=== PATIENT | female | born 1935 | race Caucasian/White ===

== ENCOUNTER 2024-10-11 21:41 | Inpatient (IN) | payer MEDICARE, SELFPAY ==
[2024-10-11 21:42] VITALS: BP 170/96; PULSE 90; RESP 33; TEMP 36.6; O2SAT 92; BMI 25.7
--- NOTE | 2024-10-11 21:51 | XRR_ITS ---
PROCEDURE INFORMATION: Exam: XR Chest Exam date and time: 10/11/2024 9:57 PM Age: 88 years old Clinical indication: Shortness of breath; Prior surgery; Surgery date: 6+ months; Surgery type: Open heart; Patient HX: Air evac arrival for resp distress. Recently diagnosed with pneumonia by pcp. ; Additional info: SOB TECHNIQUE: Imaging protocol: Radiologic exam of the chest. Views: 1 view. COMPARISON: No relevant prior studies available. FINDINGS: Lungs: Mild left mid lung field opacities which could represent mild focal pneumonia. Pleural spaces: Unremarkable. No pleural effusion. No pneumothorax. Heart/Mediastinum: See Bones/joints finding. Vasculature: Calcification of the thoracic aorta and/or great vessels consistent with atherosclerotic vessel disease. Bones/joints: Dextroscoliosis. Sternotomy wires and mediastinal clips consistent with previous CABG procedure. Other findings: Patient rotation to the left. XR/XR chest 1V portable [id number] IMPRESSION: Mild left mid lung field opacities which could represent mild focal pneumonia.
--- NOTE | 2024-10-11 21:51 | ECG_ITS ---
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 Measurements Intervals [employer] Rate: 85 P: 0 HI: 0 QRS: -79 QRSD: 149 T: 97 QT: 393 QTc: 468 Interpretive Statements ATRIAL FIBRILLATION RIGHT BUNDLE BRANCH BLOCK [120+ ms QRS DURATION, UPRIGHT V1, 40+ ms S IN I/aVL/V4/V5/V6] LEFT ANTERIOR FASCICULAR BLOCK [QRS AXIS <= -45, QR IN I, RS IN II] VOLTAGE CRITERIA FOR LVH [MEETS CRITERIA IN ONE OF: R(aVL), S(V1), R(V5), R(V5/V6)+S(V1)] POSSIBLE SEPTAL MYOCARDIAL INFARCTION , OF INDETERMINATE AGE [30 ms Q WAVE IN V1/V2] MODERATE T-WAVE ABNORMALITY, CONSIDER LATERAL ISCHEMIA [-0.1+ mV T-WAVE IN I/aVL/V5/V6] No previous ECG available for comparison Electronically Signed On 10-13-2024 20:16:53 [employer] MANAGER by Ramon Paulson M.D. [email or web address]
[2024-10-11 22:07] LABS: ABG PCO2 39.7 mmHg (35-45); ABG PH Result 7.32 (7.35-7.45); Base Excess ABG -5.4 mmol/L (-2.0-2.0); Blood Gas Allen Test Pos; Blood Gas Sample Site Radial, left; Blood Gas Sample Type Arterial; HCO3 ABG 20.4 mmol/L (22-26); HGB O2 Sat 96.4 % (95-100); Methemoglobin 0.8 % (0.4-1.5); Oxygen Device BIPAP; PO2 FiO2 Ratio Arterial Blood 194; Total Hemoglobin 13.7 g/dL (12-16)
[2024-10-11 22:08] VITALS: PULSE 107; RESP 27; O2SAT 96
[2024-10-11 22:35] LABS: Basophils % 0.2 %; Bilirubin Urine Negative (Negative); Blood Urine Negative (Negative); Eosinophils % 0.2 %; Glucose Urine UA Negative (Normal); Hematocrit 41.3 % (36-47); Ketones Urine Negative (Negative); Leukocyte Esterase Urine Negative (Negative); Lymphocytes # 0.5 10^3/uL (0.8-4.8); Lymphocytes % 8.1 %; Mean Corpuscular HGB Conc 32.4 g/dL (30-55); Mean Corpuscular Hemoglobin 30.9 pg (27-33); Mean Corpuscular Volume 95.2 fl (85-98); Mean Platelet Volume 11.2 fL (7.4-10.4); Monocytes # 0.3 10^3/uL (0.2-0.9); Monocytes % 4.9 %; Neutrophils # 5.06 10^3/uL (1.8-7.7); Neutrophils % 85.4 %; Nitrate Urine Negative (Negative); Nucleated Red Blood Cells % 0 %; Platelet Count 149 10^3/cmm (157-399); Protein Urine 1+ (Negative); Red Blood Count 4.34 10^6/uL (3.85-5.65); Red Cell Distribution Width 13.7 % (12.1-15.1); Specific Gravity, Urine 1.014 (1.005-1.030); Urine Appearance Clear (CLEAR); Urine Color Yellow (Yellow); Urobilinogen Urine 0.2 mg/dL (Negative); White Blood Count 5.92 10^3/uL (3.29-11.43)
[2024-10-11 22:40] LABS: Bacteria Urine None Seen /hpf; Hyaline Casts Urine 7.01 /lpf; RBC Urine 0-2 /hpf (0-2); Squamous Epithelial Cell Urine 0-5 /hpf (0-5); WBC Urine 0-5 /hpf (0-5)
[2024-10-11 22:52] LABS: Lactic Sepsis W/Reflex 4.1 mmol/L (0.5-2.2)
[2024-10-11 22:53] LABS: Troponin(5th) Baseline 99 ng/L (0-10)
[2024-10-11 23:01] LABS: Alanine Aminotransferase 60 U/L (0-33); Albumin Level 3.8 g/dL (3.5-5.2); Alkaline Phosphatase 103 U/L (35-105); Anion Gap 19.1 (5-19); Aspartate Amino Transferase 65 U/L (0-32); Blood Urea Nitrogen 18 mg/dL (8-23); Calcium 8.5 mg/dL (8.5-10.5); Carbon Dioxide 24 mmol/L (22-29); Chloride 92 mmol/L (98-107); Creatinine Clr Calc Pharmacy 40.1627; Globulin 2.9 g/dL (1.3-4.6); Glucose 287 mg/dL (65-115); NT Pro B Type Natriuretic Pept 12279 pg/mL (0-450); Osmolality Calculated 282 mOsm/kg (285-295); Potassium 5.1 mmol/L (3.5-5.1); Sodium 130 mmol/L (136-145); Total Bilirubin 0.7 mg/dL (0.15-1.2); Total Protein 6.7 g/dL (6.6-8.7)
[2024-10-11 23:10] LABS: Influenza A NEGATIVE (Negative); Influenza B NEGATIVE (Negative); Respiratory Syncytial Virus Ce NEGATIVE (Negative)
[2024-10-11 23:14] VITALS: BP 129/63; PULSE 80; RESP 18; O2SAT 100
[2024-10-11 23:24] LABS: Covid PCR Positive (Negative)
--- NOTE | 2024-10-11 23:57 | ED_ITS ---
HPI - SOB/Dyspnea 2 General: Chief Complaint: Shortness of Breath/Dyspnea Stated Complaint: SOB Time Seen by Provider: 10/11/24 21:44 History of Present Illness: HPI Narrative: 88-year-old female presents with shortne ss of breath. She is found by EMS to be wheezing and tachypneic, complaining of shortness of breath. She was given DuoNeb, albuterol treatments. She was placed on oxygen with some improvement. She still significantly tachypneic with shortness of breath as a main complaint. She does have some chest pressure Related Data Allergies Allergy/AdvReac Type Severity Reaction Status Date / Time No Known Allergies Allergy Verified 10/11/24 21:52 Physical Exam 2 Const: GENERAL APPEARANCE: cooperative, in distress, ill appearing and frail appearing HENMT: COMMON NORMALS: normocephalic, atraumatic and Normal external nose present HEAD & SCALP: normocephalic and atraumatic FACE & SINUS: normal facial exam and face symmetric NOSE: Normal external nose present Eye: COMMON NORMALS: Equal, round and reactive pupils present and EOMs intact bilaterally PUPIL: Yes Equal, round and reactive pupils present Neck/C-Spine: GENERAL: Yes trachea midline Chest: CHEST: Yes Symmetrical chest wall rise Resp: EFFORT & INSPECTION: Yes symmetric chest movement, Yes tachypneic, Yes respiratory distress and Yes labored AUSCULTATION: rales and wheezes Cardio: COMMON NORMALS: regular rate and regular rhythm RATE: regular rate RHYTHM: regular rhythm GI: COMMON NORMALS: Normal to inspection, nondistended, normoactive bowel sounds present Extremity: COMMON NORMALS: no pedal edema Neuro: YOVANI COMA SCALE: document GCS findings [place] coma scale eye opening: Spontaneous [place] coma scale verbal response: Orientated Yovani coma scale motor response: Obey commands Yovani coma scale total score: 15 S ENSORY EXAM: Yes extremities (intact) Psych: COMMON NORMALS: speech normal SPEECH: Yes normal speech Course 2 Vital Signs: Vital signs: Vital Signs Temperature 97.8 F 10/11/24 21:42 Pulse Rate 76 10/12/24 00:36 Respiratory Rate 18 10/12/24 00:36 Blood Pressure 130/77 10/12/24 00:36 Pulse Oximetry 96 10/12/24 00:36 Oxygen Delivery Me thod BiPAP 10/12/24 00:36 Oxygen Flow Rate 5 10/11/24 21:42 Fraction of Inspir ed Oxygen 55 10/11/24 22:08 MDM - SOB/Dyspnea Medical Decision Making 88-year-old female in respiratory failure. He is placed on BiPAP on arrival. Initial blood gas showed a pH is 7.32 with a normal pCO2 of 38. Her lactic acid is 4.1. She is COVID-positive. White blood cell count is 6. Platelet count is 150. Sodium is 130. Chest x-ray reveals mild mid lung field opacities on the left. Her BNP however is 12,300. Because of this, sepsis bolus of fluid is not given despite the lactic, which is felt to be due to hypoxia. She is much improved after BiPAP. Vancomycin and Zosyn has been ordered after blood cultures. She will require admission. Lab Data 10/11/24 22:27 10/11/24: Labs/Radiology: Radiology Impressions Chest X-Ray 10/11/24 21:51 IMPRESSION: Mild left mid lung field opacities which could represent mild focal pneumonia. Laboratory Results WBC 5.92 10^3/uL (3.29-11.43) 10/11/24: RBC 4.34 10^6/uL (3.85-5.65) 10/11/24: Hgb 13.40 g/dL (11.27-16.99) 10/11/24: Hct 41.3 % (36-47) 10/11/24: MCV 95.2 fl (85-98) 10/11/24: MCH 30.9 pg (27-33) 10/11/24: MCHC 32.4 g/dL (30-55) 10/11/24: RDW 13.7 % (12.1-15.1) 10/11/24: Plt Count 149 10^3/cmm (157-399) L 10/11/24: MPV 11.2 fL (7.4-10.4) H 10/11/24: Neut % (Auto) 85.4 % 10/11/24: Lymph % (Auto) 8.1 % 10/11/24: Powell % (Auto) 4.9 % 10/11/24: Eos % (Auto) 0.2 % 10/11/24 22: Baso % (Auto) 0.2 % 10/11/24 22: Neut # (Auto) 5.06 10^3/uL (1.8-7.7) 10/11/24 22:27 Lymph # (Auto) 0.5 10^3/uL (0.8-4.8) L 10/11/24 22:27 Powell # (Auto) 0.3 10^3/uL (0.2-0.9) 10/11/24 22: Eos # (Auto) 0.0 10^3/uL (0.0-0.8) 10/11/24 22: Baso # (Auto) 0.0 10^3/uL (0.0-0.1) 10/11/24: Nucleated RBC % (auto) 0 % 10/11/24: Nucleated RBCs # 0.0 /100WBC 10/11/24 22:27 Specimen Type Arterial 10/11/24 21:57 Sample Site Radial, left 10/11/24 21:57 ABG pH 7.32 (7.35-7.45) L 10/11/24 21:57 ABG pCO2 39.7 mmHg (35-45) 10/11/24 21:57 ABG pO2 107.0 mmHg (80.0-100.0) H 10/11/24 21:57 ABG PO2/FiO2 Ratio 194 10/11/24 21:57 ABG HCO3 20.4 mmol/L (22-26) L 10/11/24 21:57 ABG Base Excess -5.4 mmol/L (-2.0-2.0) L 10/11/24 21:57 Toi Test Pos 10/11/24 21:57 Hematocrit 42.0 % (37-47) 10/11/24 21:57 Hgb O2 Saturation 96.4 % (95-100) 10/11/24 21:57 Carboxyhemoglobin 1.0 %THgb (0.4-20.1) 10/11/24 21:57 Methemoglobin 0.8 % (0.4-1.5) 10/11/24 21:57 Total Hemoglobin 13.7 g/dL (12-16) 10/11/24 21:57 O2 Delivery Device Bipap 10/11/24 21:57 FiO2 55.0 % 10/11/24 21:57 Furniture Upholsterer ID [email or web address] 10/11/24 21:57 Sodium 130 mmol/L (136-145) L 10/11/24 22:27 Potassium 5.1 mmol/L (3.5-5.1) 10/11/24 22:27 Chloride 92 mmol/L (98-107) L 10/11/24 22:27 Carbon Dioxide 24 mmol/L (22-29) 10/11/24 22:27 Anion Gap 19.1 (5-19) H 10/11/24 22:27 BUN 18 mg/dL (8-23) 10/11/24 22:27 Creatinine 0.9 mg/dL (0.5-0.9) 10/11/24 22:27 GFR Calculation Not Reportable 10/11/24 22:27 Glucose 287 mg/dL (65-115) H 10/11/24 22:27 Calculated Osmolality 282 mOsm/kg (285-295) L 10/11/24 22:27 Lactic Acid 4.1 mmol/L (0.5-2.2) H* 10/11/24 22:27 Calcium 8.5 mg/dL (8.5-10.5) 10/11/24 22:27 Total Bilirubin 0.7 mg/dL (0.15-1.2) 10/11/24 22:27 AST 65 U/L (0-32) H 10/11/24 22:27 ALT 60 U/L (0-33) H 10/11/24 22:27 Alkaline Phosphatase 103 U/L (35-105) 10/11/24 22:27 Troponin T Baseline 99 ng/L (0-10) H 10/11/24 22:27 Troponin T 120 Minute 185.7 ng/L (0-10) H 10/12/24 00:15 Delta Troponin T 86.7 ABS# (0-10) H* 10/12/24 00:15 NT-Pro-B Natriuret Pep 77378 pg/mL (0-450) H 10/11/24 22:27 Total Protein 6.7 g/dL (6.6-8.7) 10/11/24 22:27 Albumin 3.8 g/dL (3.5-5.2) 10/11/24: Globulin 2.9 g/dL (1.3-4.6) 10/11/24: Urine Color Yellow (Yellow) 10/11/24: Urine Appearance Clear (CLEAR) 10/11/24: Urine pH 5.0 (5-7) 10/11/24: Ur Specific [place] 1.014 (1.005-1.030) 10/11/24: Urine Protein 1+ (Negative) A 10/11/24: Urine Glucose (UA) Negative (Normal) 10/11/24: Urine Ketones Negative (Negative) 10/11/24: Urine Blood Negative (Negative) 10/11/24: Urine Nitrate Negative (Negative) 10/11/24: Urine Bilirubin Negative (Negative) 10/11/24: Urine Urobilinogen 0.2 mg/dL (Negative) 10/11/24: Ur Leukocyte Esterase Negative (Negative) 10/11/24: Urine RBC 0-2 /hpf (0-2) 10/11/24: Urine WBC 0-5 /hpf (0-5) 10/11/24: Ur Squamous Epith Cells 0-5 /hpf (0-5) 10/11/24: Amorphous Sediment Not Reportable 10/11/24: Urine Bacteria None seen /hpf (NONE) 10/11/24: Hyaline Casts 7.01 /lpf 10/11/24: Coronavirus (PCR) Positive (Negative) A 10/11/24: Influenza A (PCR) Negative (Negative) 10/11/24: Influenza Type B (PCR) Negative (Negative) 10/11/24: RSV (PCR) Negative (Negative) 10/11/24: All radiology interpretation(s) finalized by discharge Critical Care Time 2 Critical Care Time: Critical Care Time: Yes Total Critical Care Time: 35 Attestation: This case had a high probability of a clinically significant, sudden, or life threatening deterioration of this patient's condition which required my full and direct attention, intervention and personal management. Time is independent of any procedures performed. Discharge Plan Discharge Patient Disposition: Admitted As Inpatient Clinical Impression: Acute hypoxic respiratory failure, Acidosis, lactic, COVID-19, Pulmonary edema Condition: Serious Coding Level of Care Code ED Chromium Plater for Rajat Walton
[2024-10-12] VITALS (80 sets, daily range): BP systolic 113–160; BP diastolic 52–100; PULSE 64–110; RESP 16–44; TEMP 36.9–37.5; O2SAT 85–100; BMI 22.3
[2024-10-12] MEDS: piperacillin-tazobactam 4.5 GM in sodium chloride 0.9% (plus) 50 ML IV (00:11)
[2024-10-12] MEDS: VANCOMYCIN ADD-Vantage 1,000 MG in 0.9% NaCl ADD-Vantage 250 ML 250 MG IV (00:13)
[2024-10-12 00:19] LABS: Reflex Lactate Order REFLEX LACTIC ORDERD
[2024-10-12 00:38] LABS: Troponin 5 2HR 185.7 ng/L (0-10); Troponin 5 2HR Delta 86.7 ABS# (0-10)
--- NOTE | 2024-10-12 00:45 | USCV_ITS ---
Jayde Obregon Age: 88 Gender: F : 1935 Exam Date: 10/12/2024 14:04 Ordering Phys: Deangelo Marrufo MD Technologist: James Barrios [place] [facility] [place] sob BP: 143 / 69 HR: 74 Rhythm: Sinus Technical Quality: Adequate MEASUREMENTS (Male / Female) Normal Values 2D ECHO LV Diastolic Diameter PLAX 4.9 cm 4.2 - 5.9 / 3.9 - 5.3 cm IVS Diastolic Thickness 1.7 cm 0.6 - 1.0 / 0.6 - 0.9 cm IVS Systolic Thickness 2.0 cm LVPW Diastolic Thickness 1.8 cm 0.6 - 1.0 / 0.6 - 0.9 cm LVPW Systolic Thickness 2.3 cm LVOT Diameter 2.1 cm LV Ejection Fraction 2D Teich 18.8 % LV Ejection Fraction MOD 4C 19.8 % LV Ejection Fraction MOD 2C 35.9 % LV Ejection Fraction 2C AL 36.1 % LA Diameter 4.2 cm RA Systolic Volume 4C AL 44.1 ml RA Systolic Volume 4C MOD 45.4 ml LA Sys Volume AL 62.3 cm cubed LA Sys Volume Index AL 38.1 cm cubed/m squared Aorta at Sinotubular Diameter 3.3 cm IVC Diameter 1.8 cm M-MODE LA Ao Ratio MM 1.1 AV Cusp Separation MM 2.1 cm DOPPLER AV Peak Velocity 184.0 cm/s AV Area Cont Eq vti 1.7 cm squared AV Area Cont Eq pk 1.9 cm squared MV Peak Velocity 98.0 cm/s MV Area PHT 4.6 cm squared Mitral E to A Ratio 1.6 TR Peak Velocity 359.0 cm/s TR Peak Gradient 51.6 mmHg TR Mean Velocity 257.0 cm/s TR Mean Gradient 29.1 mmHg TR Velocity Time Integral 116.6 cm PV Peak Velocity 86.0 cm/s RV Ejection Time 0.2 s FINDINGS Left Ventricle Left ventricle is normal in size. LV systolic function is moderate to severely reduced with EF of 30-35%. Moderate to severe global hypokinesis. Right Ventricle Normal in size and function. Right Atrium Normal in size Left Atrium Dilated. Mitral Valve Mitral valve is thickened. Moderate mitral regurgitation. Aortic Valve Aortic valve is thickened. Mild aortic stenosis with aortic valve area of 1.71 cm squared and mean gradient of 9 mmHg. Tricuspid Valve Mild tricuspid regurgitation. RVSP is 50 to 55 mmHg. This is consistent with moderate pulmonary hypertension Pulmonic Valve Mild to moderate pulmonic regurgitation Pericardium Normal Aorta Normal in size IVC Appears to be normal CONCLUSIONS LV systolic function is moderate to severely reduced with EF of 30-35% Left atrial dilation. Moderate mitral regurgitation. Mild aortic stenosis. Mild to moderate tricuspid regurgitation. Moderate pulmonary hypertension. Mild to moderate pulmonic regurgitation. No comparison studies are available Ramon Paulson MD (Electronically Signed) Final Date: 13 October 2024 17:03 S
--- NOTE | 2024-10-12 00:45 | CTR_ITS ---
PROCEDURE INFORMATION: Exam: CTA Chest With Contrast Exam date and time: 10/12/2024 2:40 AM Age: 88 years old Clinical indication: Shortness of breath; Prior surgery; Surgery date: 6+ months; Surgery type: Cabg; Patient HX: SOB with hypoxia TECHNIQUE: Imaging protocol: Computed tomographic angiography of the chest with contrast. Exam focused on the arteries. 3D rendering (Not supervised by radiologist): MIP and/or 3D reconstructed images were created by the technologist. Radiation optimization: All CT scans at this facility use at least one of these dose optimization techniques: automated exposure control; mA and/or kV adjustment per patient size (includes targeted exams where dose is matched to clinical indication); or iterative reconstruction. Contrast material: OMNI 350; Contrast volume: 65 ml; Contrast route: INTRAVENOUS (IV); COMPARISON: CR (CHEST, ) 10/11/2024 9:57 PM RADIATION DOSE METRICS: Total DLP (mGy-cm): 371 FINDINGS: Pulmonary arteries: Normal. No pulmonary emboli. Aorta: The ascending aorta measures 4.7 cm in maximal dimension. The descending thoracic aorta measures 2.8 cm in maximal dimension. There is calcified plaque involving the aorta and coronary vessels. There is an aberrant right subclavian artery. Please note that the aorta is not opacified to the extent necessary to evaluate for an aortic dissection. Lungs: There are scattered airspace disease involving the upper and lower lobes bilaterally most compatible with multifocal pneumonia. A few of the opacities have a somewhat nodular morphologic contour and while favored to represent an inflammatory process, follow-up would be recommended to document resolution. There is bibasilar dependent atelectasis. There is bronchial wall thickening involving primarily the lower lobe bronchi bilaterally. Pleural spaces: There are small bilateral pleural effusions. Heart: The heart is enlarged. There is no evidence of a significant pericardial effusion. Lymph nodes: There are multiple small as well as borderline enlarged mediastinal and hilar lymph nodes. No enlarged axillary nodes are appreciated. Bones/joints: No blastic or lytic bony lesions are appreciated. There are postoperative changes status post median sternotomy. Soft tissues: Unremarkable. CT/CT angio chest PE protcl [id number] IMPRESSION: 1. Cardiomegaly. 2. Aneurysmal dilatation involving the ascending aorta which measures 4.7 cm in maximal dimension. 3. Small bilateral pleural effusions. 4. Bilateral opacities likely inflammatory in origin. Recommend short-term follow-up to document complete resolution with appropriate therapy. 5. Bibasilar atelectasis with bronchial wall thickening. 6. Multiple small as well as slightly enlarged mediastinal and hilar lymph nodes most likely reactive. Again, follow-up recommended to document for interval change.
--- NOTE | 2024-10-12 00:52 | P.HP_ITS ---
Providers/Chief Complaint 2 Chief Complaint: SOB History of Present Illness Jayde Obregon is a 88 year old female CAD, history of CABG x 4, history of atrial fibrillation, hypertension hyperlipidemia who presents to [facility] due to shortness of breath. Patient currently is on BiPAP, in moderate respiratory distress nasal flaring, intercostal retractions suprasternal retractions, tachypnea, tachycardia, but is more comfortable on BiPAP she tells me. Patient's family numbers at bedside which help in the history taking. Patient has not been feeling well over the last few days, she has been more fatigue, malaise, more short of breath. This evening she had worsening shortness of breath, respiratory failure, patient was Air[facility]Evac to [facility] due to acute respiratory was placed immediately on BiPAP, found to be COVID-positive lactic acid 4.1, chest x-ray showing no pneumonia, at BnP over 12,000, elevated troponins, no complaints of chest pain, does have a cough, Review of Systems 2 Const: Reports: chills, fatigue and malaise Card: Denies: chest pain Resp: Reports: dyspnea GI: Denies: abdominal pain Neuro: Denies: headache(s) Medications/Allergies Allergies Allergy/AdvReac Type Severity Reaction Status Date / Time No Known Allergies Allergy Verified 10/11/24 21:52 PFSH Acute 2 PFSH: Medical History (Updated 10/12/24 @ 01:01 by Deangelo Marrufo MD) Atrial fibrillation History of hypertension Social History (Updated 10/12/24 @ 00:56 by Deangelo Marrufo MD) Smoking and tobacco/nicotine status: never used tobacco/nicotine Alcohol intake: never Substance/Drug Use: never Vitals/I&O/Wt Last Vital Signs Temp 97.8 F 10/11/24 21:42 Pulse 76 10/12/24 00:36 Resp 18 10/12/24 00:36 BP 130/77 10/12/24 00:36 Pulse Ox 96 10/12/24 00:36 O2 Del Method BiPAP 10/12/24 00:36 O2 Flow Rate 5 10/11/24 21:42 FiO2 55 10/11/24 22:08 Weight last 48 hrs Weight 68.039 kg Physical Exam 2 Const: COMMON NORMALS: no acute distress and patient oriented x3 HENMT: COMMON NORMALS: normocephalic HEAD & SCALP: normocephalic Eye: COMMON NORMALS: Equal, round and reactive pupils present Neck/C-Spine: COMMON NORMALS: no JVD Resp: OTHER: Tachypnea, nasal flaring, intercostal retractions, suprasternal retractions, short of breath with a few words, wheezing in all lung perez, on BiPAP Cardio: COMMON NORMALS: no JVD, regular rhythm, S1 normal heart sound present and S2 normal heart sound present RATE: tachycardic RHYTHM: regular rhythm HEART SOUNDS: S1 normal heart sound present and S2 normal heart sound present GI: COMMON NORMALS: Normal to inspection, nondistended, normoactive bowel sounds present, Soft to palpation and non-tender Extremity: COMMON NORMALS: no pedal edema Neuro: COMMON NORMALS: patient oriented x3, CN's II-XII intact bilaterally and moves all extremities Psych: COMMON NORMALS: mental status grossly normal Urinary Catheter Management: Shah: Cath Placed During This Visit: yes Urinary Catheter Date of Insertion: 10/11/24 Urinary Catheter Time of Insertion: 23:16 Sepsis: Is patient septic: Yes Focused sepsis exam performed: Yes F ocused sepsis exam: DP PT pulses diminished bilaterally, no mottling, capillary refill greater than 3 seconds Date exam was performed: 10/12/24 Time exam was performed: 01:01 Data 10/11/24 22:27 10/11/24 22:27 Micro: Microbiology 10/11/24 23:10 Blood Culture - Preliminary Blood SPECIMEN COLLECTED 10/11/24 22:27 Blood Culture - Preliminary Blood SPECIMEN COLLECTED A&P Assessment and plan (1) Acute hypoxic respiratory failure: (2) Pulmonary edema: (3) COVID-19: (4) Acidosis, lactic: (5) Pneumonia: (6) NSTEMI (non-ST elevated myocardial infarction): (7) Acute respiratory distress: (8) CHF (congestive heart failure): (9) Sepsis: Plan Acute hypoxic respiratory failure -Multifactorial -COVID-19 pneumonia -Concerns for secondary bacterial pneumonia -Concerns for fluid overload, systolic CHF, pulmonary edema ? Plan ? Monitor respiratory status closely ? Continue BiPAP ? Monitor in ICU ? Decadron 6 mg IV push every 24 hours ? Start remdesivir ? Continue vancomycin ? Continue Zosyn ? Lasix 40 mg IV push once ? Cardiac echo -CT angiogram the chest # DuoNeb # Budesonide # Monitor respiratory status closely # Patient is DNR/DNI # Heparin drip for DVT prophylaxis Sepsis secondary to COVID-19, pneumonia, sepsis features met given lactic acidosis, acute respiratory failure, NSTEMI ? Serial EKGs, serial troponins, telemetry monitoring ? Continue aspirin, statin -heparin drip Lactic acidosis Atrial fibrillation History of CAD, history of CABG Attestations 2 Medical Necessity Statement*: Patient requires hospitalization, inpatient, greater than 2 midnights, for acute hypoxic respiratory failure, with acute respiratory distress, multifactorial from CHF, pneumonia, COVID-19, NSTEMI, Diagnoses Acute hypoxic respiratory failure J96.01 Pulmonary edema J81.1 COVID-19 U07.1 Acidosis, lactic E87.20 Pneumonia J18.9 NSTEMI (non-ST elevated myocardial infarction) I21.4 Acute respiratory distress R06.03 CHF (congestive heart failure) I50.9 Sepsis A41.9
[2024-10-12 01:15] LABS: Procalcitonin 0.09 ng/mL (0-0.5)
--- NOTE | 2024-10-12 01:57 | PC.NURSE ---
Pt taken off bipap at md request and placed on 5LNC. Pt repositioned to left side for comfort. Pt tolerated well. Pt given sip of water with MD approval. NAD. Call light in reach and pt and family instructed to let nurse know if pt becomes SOB.
[2024-10-12] MEDS: iohexol 350 mg/mL 500 mL Btl (per mL) IV (02:48)
[2024-10-12 02:53] LABS: Lactic Acid level (Lactate) 1.6 mmol/L (0.5-2.2)
[2024-10-12] MEDS: pantoprazole 40 mg SDV IVP (03:57)
[2024-10-12] MEDS: dexamethasone 10 mg/mL INJ 6 MG IVP (03:57)
[2024-10-12] MEDS: FUROsemide 10 mg/mL SDV 4mL 40 MG IVP (03:58)
[2024-10-12] MEDS: heparin 5,000 unit/mL INJ 1 mL IVP (03:59)
--- NOTE | 2024-10-12 04:05 | ECG_ITS ---
[facility] Test Date: 2024-10-12 Pat Name: Jayde Obregon Department: Room: ICU09 Gender: Female Assistant Controller: : 1935 Requested By: Lalo Logan Order Number: [id number] Hemphill MD: Ramon Paulson M.D. Measurements Intervals [place] Rate: 93 P: 0 WA: 0 QRS: -68 QRSD: 141 T: 21 QT: 424 QTc: 529 Interpretive Statements ATRIAL FIBRILLATION RIGHT BUNDLE BRANCH BLOCK [120+ ms QRS DURATION, UPRIGHT V1, 40+ ms S IN I/aVL/V4/V5/V6] LEFT ANTERIOR FASCICULAR BLOCK [QRS AXIS <= -45, QR IN I, RS IN II] VOLTAGE CRITERIA FOR LVH [MEETS CRITERIA IN ONE OF: R(aVL), S(V1), R(V5), R(V5/V6)+S(V1)] POSSIBLE SEPTAL MYOCARDIAL INFARCTION , PROBABLY OLD [30 ms Q WAVE IN V1/V2] Compared to ECG 10/11/2024 21:56:24 T-wave abnormality no longer present Possible ischemia no longer present Myocardial infarct finding still present Electronically Signed On 10-13-2024 20:31:52 [employer] by Ramon Paulson M.D. [id number]
[2024-10-12] MEDS: heparin drip 25,000 UNIT/500 ML PREMIX 17 UNIT IV (04:15)
[2024-10-12] MEDS: remdesivir 200 MG in sodium chloride 0.9% (100 ml) 60 ML 100 MG IV (04:24)
[2024-10-12 06:39] LABS: Estmated Average Glucose 117; Hemoglobin A1C 5.7 % (4.0-6.0)
[2024-10-12 06:40] LABS: Troponin 5 6HR 224.5 ng/L (0-10); Troponin 5 6HR Delta 125.5 ng/L (0-12)
[2024-10-12 06:48] LABS: Chol HDL Ratio 1.71 mg/dL (0.0-4.40); Cholesterol 72 mg/dL (0-200); HDL Cholesterol 42 mg/dL (60-100); LDL Cholesterol Calculated 20 mg/dL (50-129); LDL HDL Ratio 0.48 RATIO (0.00-3.22); NT Pro B Type Natriuretic Pept 11924 pg/mL (0-450); Thyroid Stimulating Hormone 1.37 uIU/mL (0.27-4.20); Triglycerides 48 mg/dL (0-150)
--- NOTE | 2024-10-12 08:19 | P.PN_ITS ---
Subjective 2 Subjective: Per chart review, elizabeth was tachypneic to 40s between 2 and 3am and hypoxic to mid 80s. It improved to high 20s by 4am today w/ O2 sat ranging from 88 to 97. She is sitting in a chair. She had a moderate BM this AM. She is AO x3. She states that she feels better today and feels that the BiPAP worked well. She is off BiPAP and is on O2 at this time. She states that her dyspnea has improved. She denies CP, palpitations, dizziness. She endorses mild light headedness. She has tremors in her b/l hands that I noted. She states she also has them in her feet, but I do not note tremors. She complains of knee pain kirk in the R. knee when she stands such that it crackles and pops. Daughter wants to know when she may be discharged for a woman her age. Vitals/I&O/Wt Last Vital Signs Temp 99.2 F 10/12/24 02:57 Pulse 76 10/12/24 06:00 Resp 20 H 10/12/24 04:45 BP 143/69 10/12/24 04:45 Pulse Ox 97 10/12/24 04:45 O2 Del Method Nasal Cannula 10/12/24 04:15 O2 Flow Rate 5 10/12/24 04:15 FiO2 55 10/12/24 04:00 10/11/24 10/12/24 10/12/24 22:59 06:59 14:59 Intake Total 520 / 520 Output Total 1700 / 1700 Balance -1180 / -1180 Weight last 48 hrs Weight 59 kg Weight 59 kg Weight 68.039 kg Physical Exam 2 Const: GENERAL APPEARANCE: cooperative and comfortable O RIENTATION/CONSCIOUSNESS: Yes awake, Yes oriented to person, Yes oriented to place and Yes oriented to time HENMT: COMMON NORMALS: normocephalic, atraumatic, external ears normal and Normal external nose present HEAD & SCALP: normocephalic and atraumatic N OSE: Normal external nose present EXTERNAL EAR: Yes external ears normal M OUTH: Normal oral and palatal mucosa present THROAT: posterior oropharynx normal Eye: COMMON NORMALS: Equal, round and reactive pupils present and conjunctivae normal CONJUNCTIVA: Yes conjunctivae normal PUPIL: Yes Equal, round and reactive pupils present EOM: No EOM abnormal Neck/C-Spine: COMMON NORMALS: Thyroid normal GENERAL: Yes normal visual inspection and Yes trachea midline THYROID: Thyroid normal CERVICAL SPINE: Yes cervical ROM normal Lymph: OTHER: No cervical or supraclavicular LAD Resp: OTHER: diminished breath sounds in the L. lower lung perez. Cardio: OTHER: Irregular rate and rhythm. Telemonitor shows epidoses of RVR. GI: OTHER: BS+, NT, ND, no guarding, rigidity or rebound tenderness : OTHER: Shah catheter in place with mildly concentrated yellow urine noted Extremity: NARRATIVE EXTREMITY EXAM: no knee effusions GENERAL: No clubbing, No cyanosis and No edema Neuro: SENSORIUM/ORIENTATION: Yes oriented to person, Yes oriented to place and Yes oriented to time CRANIAL NERVES: Yes CN normal except as noted S PEECH: speech normal MOTOR EXAM: 5/5 motor strength present throughout Psych: COMMON NORMALS: Normal thought process present and speech normal A PPEARANCE: Yes grossly normal ATTITUDE: Yes calm and Yes engaged A CTIVITY/MOTOR BEHAVIOR: Yes appropriate eye contact SPEECH: Yes normal speech MOOD & AFFECT: Yes euthymic mood THOUGHT PROCESS: Normal thought process present THOUGHT CONTENT: Yes Normal thought content present A TTENTION/CONCENTRATION: Yes attention grossly intact MEMORY/COGNITION: Yes memory grossly intact Skin: COMMON NORMALS: no rashes or lesions noted GENERAL SKIN EXAM: no rashes or lesions noted Urinary Catheter Management: Shah: Cath Placed During This Visit: yes Reason for Continuing Indwelling Catheter: Accurate Measurement of Urinary Output in Critically Ill Patients Urinary Catheter Date of Insertion: 10/11/24 Urinary Catheter Time of Insertion: 23:16 Data 10/12/24 07:45 10/12/24 07:45 Micro: Microbiology 10/11/24 23:10 Blood Culture - Preliminary Blood SPECIMEN COLLECTED 10/11/24 22:27 Blood Culture - Preliminary Blood SPECIMEN COLLECTED A&P Assessment and plan (1) CHF (congestive heart failure): (2) NSTEMI (non-ST elevated myocardial infarction): (3) Acidosis, lactic: (4) COVID-19: (5) Acute hypoxic respiratory failure: (6) Acute respiratory distress: (7) Pneumonia: Plan Ms. Obregon is an 88 yo woman w/ 4v CABG in 2002 w/ 4 stents afterwards, Afib, HTN & HLD, who was life flighted to [facility] on 10/12/2024 for progressive malaise and dyspnea over the labst few days as well as a cough, but no chest pain. In the ED, she was in respiratory distress and was noted to be COVID-19 positive. [place] [address], increasing Trop T. Her EKG showed Afib w/ no ST changes, but prolonged QTc of 529. Her CXR showed mild L. mid lung field opacities concerning for a pneumonia. A CTA chest was done that was negative for negative for a PE, but showed concern for multifocal pna, bibasilar dependent atelectasis, small b/l pleural effusions, 4.7cm ascending thoracic aortic aneurysm Acute hypoxic respiratory failure: Multifactorial etiology: COVID-19 pneumonia w/ Concerns for secondary bacterial pneumonia & possible vol overload w/ b/l pleural effusions - Off BiPAP. Currently on 4L. She does not wear O2 at home. Continue to wean as tolerated. #Sepsis secondary to COVID-19, pneumonia, sepsis features met given lactic acidosis, acute respiratory failure, #COVID-19 pneumonia #Concerns for secondary bacterial pneumonia ? Continue BiPAP - s/p Lasix 40 mg IV push once ? Decadron 6 mg IV push every 24 hours ? Continue Remdesivir, Vanc/Zosyn, PPI, - Continue DuoNeb & Budesonide Sepsis secondary to COVID-19, pneumonia, sepsis features met given lactic acidosis, acute respiratory failure, #NSTEMI ? Serial EKGs, serial troponins, telemetry monitoring ? Continue aspirin, statin -heparin drip - F/u ECHO - Will consult Cardiology #Possible vol overload w/ b/l pleural effusions - s/p Lasix 40mg IV x 1 on admission - F/u ECHO #Lactic acidosis - Improved. #Atrial fibrillation #CAD #4v CABG in 2002 w/ 4 stents afterwards #HTN #HLD - Resume Sotalol. Will slowly reintroduce Lisinopril - Resumed Aspririn. Held Eliquis #4.7cm ascending thoracic aortic aneurysm #Prolonged QTc - Repeat EKG tomorrow. #Possible R. knee osteoarthritis: patient's daughter requested ortho consult, but the patient states that she has been told that she is not a candidate for any surgeries due to her age. Furthermore, she is on decadron at this time. Consider referral to ortho or her PCP for further evaluation on discharge. Code status: DNR/NDI DVT ppx: Heparin gtt. Attestations 2 Medical Necessity Statement*: Patient needs to remain hospitalized for COVID-19 infection, Acute hypoxic respiratory failure. Coding Level of Care Code 14964 Diagnoses CHF (congestive heart failure) I50.9 NSTEMI (non-ST elevated myocardial infarction) I21.4 Acidosis, lactic E87.20 COVID-19 U07.1 Acute hypoxic respiratory failure J96.01 Acute respiratory distress R06.03 Pneumonia J18.9
--- NOTE | 2024-10-12 08:33 | PHA.VACGOAL ---
Vancomycin Goal - Goal Vancomycin Goal:: 15-20 mg/L Vancomycin Indication:: Pneumonia - Therapy Current therapy:: Pip/Tazo Day of therpy:: Day 1 of [] Actual body weight (kg): 130 lb 1.164 oz - Data Labs: WBC 5.92 10^3/uL (3.29-11.43) 10/11/24 22: RBC 4.34 10^6/uL (3.85-5.65) 10/11/24 22: Hgb 13.40 g/dL (11.27-16.99) 10/11/24 22: Hct 41.3 % (36-47) 10/11/24 22: MCV 95.2 fl (85-98) 10/11/24 22: MCH 30.9 pg (27-33) 10/11/24 22: MCHC 32.4 g/dL (30-55) 10/11/24 22: RDW 13.7 % (12.1-15.1) 10/11/24 22:27 Sodium 130 mmol/L (136-145) L 10/11/24 22:27 Potassium 5.1 mmol/L (3.5-5.1) 10/11/24 22: Chloride 92 mmol/L (98-107) L 10/11/24 22:27 Carbon Dioxide 24 mmol/L (22-29) 10/11/24 22: Anion Gap 19.1 (5-19) H 10/11/24 22:27 BUN 18 mg/dL (8-23) 10/11/24 22:27 Creatinine 0.9 mg/dL (0.5-0.9) 10/11/24 22:27 GFR Calculation Not Reportable 10/11/24 22:27 Last dialysis session:: N/A Treatment plan:: new consult Regimen:: TELEPHARMACY: LOADING DOSE OF 1g MAINTENANCE DOSE OF 500 MG Q12H PER DOSING PROTOCOL Follow up:: WILL MONITOR AND CONTINUE TO FOLLOW DAILY
[2024-10-12 08:40] LABS: Basophils % 0.2 %; Hematocrit 38.6 % (36-47); Lymphocytes % 17.3 %; Mean Corpuscular HGB Conc 32.9 g/dL (30-55); Mean Corpuscular Hemoglobin 31.3 pg (27-33); Mean Corpuscular Volume 95.1 fl (85-98); Mean Platelet Volume 11.2 fL (7.4-10.4); Monocytes # 0.4 10^3/uL (0.2-0.9); Monocytes % 6.5 %; Neutrophils % 75.5 %; Nucleated Red Blood Cells % 0 %; Platelet Count 145 10^3/cmm (157-399); Red Blood Count 4.06 10^6/uL (3.85-5.65); Red Cell Distribution Width 13.7 % (12.1-15.1); White Blood Count 5.56 10^3/uL (3.29-11.43)
[2024-10-12 08:53] LABS: Alanine Aminotransferase 206 U/L (0-33); Albumin Level 3.2 g/dL (3.5-5.2); Alkaline Phosphatase 95 U/L (35-105); Anion Gap 17.3 (5-19); Aspartate Amino Transferase 231 U/L (0-32); Blood Urea Nitrogen 16 mg/dL (8-23); Calcium 8.3 mg/dL (8.5-10.5); Carbon Dioxide 24 mmol/L (22-29); Chloride 95 mmol/L (98-107); Creatinine Clr Calc Pharmacy 42.4619; Globulin 3.1 g/dL (1.3-4.6); Glucose 128 mg/dL (65-115); Osmolality Calculated 277 mOsm/kg (285-295); Potassium 4.3 mmol/L (3.5-5.1); Sodium 132 mmol/L (136-145); Total Bilirubin 0.4 mg/dL (0.15-1.2); Total Protein 6.3 g/dL (6.6-8.7)
[2024-10-12] MEDS: piperacillin-tazobactam 3.375 GM in sodium chloride 0.9% (plus) 50 ML IV ×3 (08:56→23:33)
[2024-10-12] MEDS: aspirin 81 mg EC Tablet PO (08:58)
[2024-10-12] MEDS: budesonide 0.5 mg/2 mL Neb INHALATION ×2 (09:15→20:58)
[2024-10-12] MEDS: ipratropium-albuterol 3 mL Neb INHALATION ×4 (09:15→20:58)
--- NOTE | 2024-10-12 10:55 | PC.PHAR ---
Patient's daughter gave me a list of medications .On the list is Eliquis 2.5 mg bid . I do not see it in the external list,and unable to contact Pharmacy . I did list it on the medication list.
[2024-10-12 11:57] LABS: Partial Thromboplastin Time 97.3 SECONDS (23.9-36.7)
[2024-10-12] MEDS: sotalol 80 mg Tablet 40 MG PO ×2 (12:03→20:49)
[2024-10-12] MEDS: sennosides-docusate Tablet 0.5 TAB PO (12:04)
[2024-10-12] MEDS: vancomycin 500 MG in sodium chloride 0.9% (plus) 100 ML 200 MG IV ×2 (12:05→23:34)
--- NOTE | 2024-10-12 13:22 | P.CONIM_ITS ---
Providers/Reason For Consult 2 Consulting Physician/Specialty*: Ramon Paulson MD/ Cardiology Reason for Consult*: Troponin elevation Requesting Physician: Dr Gee Attending Physician: Jailene Gee MD History of Present Illness History of Present Illness Jayde Obregon is a 88 year old female with past medical history of atrial fibrillation on Eliquis, CAD and status post CABG and PCI's in the past who was brought to the hospital via air EVAC as well as RN severe shortness of breath. She was found to have COVID-pneumonia. Cardiology was consulted as she has troponin elevation from a baseline of 99 LDL of 224. EKG shows atrial fibrillation with no significant ST-T changes. She denies chest pain. States feeling better compared to before. She had and prior interventions at [facility] on 7 years ago and per patient was told there are no more invasive options for revascularization for her. Review of Systems 2 Const: Reports: chills, fatigue and malaise Card: Denies: chest pain Resp: Reports: dyspnea GI: Denies: abdominal pain Neuro: Denies: headache(s) Medications/Allergies Home Medications Medication Instructions Recorded Confirmed Last Taken Type Heart Food Caps 1 cap PO DAILY 10/12/24 10/12/24 10/11/24 History allopurinol 100 mg tablet 100 mg PO DAILY 10/12/24 10/12/24 10/11/24 History alprazolam 0.25 mg tablet See Rx Instructions .Route .COMPLEX 10/12/24 10/12/24 10/11/24 History amantadine HCl 100 mg capsule 100 mg PO BID 10/12/24 10/12/24 10/11/24 History apixaban 2.5 mg tablet (Eliquis) 2.5 mg PO BID 10/12/24 10/12/24 10/11/24 History apple cider vinegar 600 mg capsule 600 mg PO DAILY 10/12/24 10/12/24 10/11/24 History ascorbic acid (vitamin C) 1,000 mg 500 mg PO DAILY 10/12/24 10/12/24 10/11/24 History tablet (Vitamin C) aspirin 81 mg tablet,delayed 81 mg PO DAILY 10/12/24 10/12/24 10/11/24 History release (Shaila Low Dose Aspirin) cefuroxime axetil 500 mg tablet 500 mg PO BID 10/12/24 10/12/24 10/11/24 History cholecalciferol (vitamin D3) 50 50 mcg PO DAILY 10/12/24 10/12/24 10/11/24 History mcg (2,000 unit) tablet (Vitamin D3) furosemide 40 mg tablet 40 mg PO DAILY 10/12/24 10/12/24 10/11/24 History lisinopril 10 mg tablet 10 mg PO BID 10/12/24 10/12/24 10/11/24 History magnesium glycinate 100 mg (as 100 mg PO DAILY 10/12/24 10/12/24 10/11/24 History glycinate) tablet potassium chloride 20 mEq 20 meq PO DAILY 10/12/24 10/12/24 10/11/24 History tablet,extended release(part/cryst) pravastatin 40 mg tablet 40 mg PO DAILY 10/12/24 10/12/24 10/11/24 History primidone 50 mg tablet 150 mg PO BEDTIME 10/12/24 10/12/24 10/11/24 History sotalol 80 mg tablet 40 mg PO BID 10/12/24 10/12/24 10/11/24 History vitamins A,C,A-qllf-oeuakr 2,148 2 tab PO BID 10/12/24 10/12/24 10/11/24 History mcg-113 mg-45 mg-17.4 mg tablet (PreserVision AREDS) Allergies Allergy/AdvReac Type Severity Reaction Status Date / Time No Known Allergies Allergy Verified 10/11/24 21:52 Current Medications Generic Name Dose Route Start Last Admin Trade Name Freq PRN Reason Stop Dose Admin Albuterol/Ipratropium 3 ml 10/12/24 08:00 10/12/24 09:15 Ipratropium-Albuterol 3 Ml Neb INHALATION 3 ml QID.RESPIRATORY DEYSI Administration Aspirin 81 mg 10/12/24 09:00 10/12/24 08:58 Aspirin 81 Mg Ec Tablet PO 81 mg DAILY DEYSI Administration Budesonide 0.5 mg 10/12/24 08:00 10/12/24 09:15 Budesonide 0.5 Mg/2 Ml Neb INHALATION 0.5 mg BID.RESPIRATORY DEYSI Administration Dexamethasone 6 mg 10/12/24 03:20 10/12/24 03:57 Dexamethasone 10 Mg/Ml Inj IVP 6 mg Q24H DEYSI Administration Heparin Sodium/Sodium Chloride 25,000 unit in 500 mls @ 0 mls/hr 10/12/24 03:20 10/12/24 12:13 Heparin Drip IV 12.41 unit/kg/hr CONT DEYSI 14.64 mls/hr Titration Protocol Per Protocol Piperacillin Sod/Tazobactam 50 mls @ 12.5 mls/hr 10/12/24 07:30 10/12/24 08:56 Sod 3.375 gm/ Sodium Chloride IV 12.5 mls/hr Q8H DEYSI Administration Vancomycin HCl 500 mg/ Sodium 100 mls @ 200 mls/hr 10/12/24 12:00 10/12/24 12:05 Chloride IV 200 mls/hr Q12H DEYSI Administration Pantoprazole Sodium 40 mg 10/12/24 03:20 10/12/24 03:57 Pantoprazole 40 Mg Sdv IVP 40 mg Q24H DEYSI Administration Senna/Docusate Sodium 0.5 tab 10/12/24 11:53 10/12/24 12:04 Sennosides-Docusate Tablet PO 0.5 tab DAILY DEYSI Administration Sotalol HCl 40 mg 10/12/24 11:52 10/12/24 12:03 Sotalol 80 Mg Tablet PO 40 mg BID@0900,2100 DEYSI Administration PFSH Acute 2 PFSH: Medical History (Updated 10/13/24 @ 06:38 by Ramon Paulson M.D) Atrial fibrillation History of hypertension Surgical History (Updated 10/12/24 @ 12:31 by Jailene Gee MD) S/P coronary artery stent placement s/p 4 stents since her CABG in 2002 Hx of CABG 4v cabg in 2002 Social History (Updated 10/12/24 @ 00:56 by Deangelo Marrufo MD) Smoking and tobacco/nicotine status: never used tobacco/nicotine Alcohol intake: never Substance/Drug Use: never Vitals/I&O/Wt Last Vital Signs Temp 99.2 F 10/12/24 02:57 Pulse 79 10/12/24 08:00 Resp 18 10/12/24 08:00 BP 143/69 10/12/24 04:45 Pulse Ox 94 10/12/24 08:00 O2 Del Method Nasal Cannula 10/12/24 08:00 O2 Flow Rate 4.5 10/12/24 08:00 FiO2 55 10/12/24 04:00 10/11/24 10/12/24 10/12/24 22:59 06:59 14:59 Intake Total 520 / 520 135.433 / 135.433 Output Total 1700 / 1700 Balance -1180 / -1180 135.433 / 135.433 Weight last 48 hrs Weight 130 lb 1.164 oz Weight 130 lb 1.164 oz Weight 150 lb Physical Exam 2 Narrative: GENERAL: Patient is alert, awake and oriented x3. HEART: Irregularly irregular, grade 2/6 systolic murmur LUNGS: Diminished air entry CENTRAL NERVOUS SYSTEM: Grossly nonfocal. EXTREMITIES: Lower extremities with 1+ edema bilaterally. Urinary Catheter Management: Shah: Cath Placed During This Visit: yes Reason for Continuing Indwelling Catheter: Accurate Measurement of Urinary Output in Critically Ill Patients Urinary Catheter Date of Insertion: 10/11/24 Urinary Catheter Time of Insertion: 23:16 Data 10/13/24 01:10 10/13/24 01:10 Micro: Microbiology 10/11/24 23:10 Blood Culture - Preliminary Blood SPECIMEN COLLECTED 10/11/24 22:27 Blood Culture - Preliminary Blood SPECIMEN COLLECTED A&P Assessment and plan (1) Troponin level elevated: (2) CHF (congestive heart failure): (3) COVID-19: (4) Acute hypoxic respiratory failure: (5) Pulmonary edema: Plan Patient's troponin elevation is likely secondary to demand ischemia. Has significant CAD history. No chest pain. Patient wants medical therapy only. This will be appropriate. Can continue IV anticoagulation for 48 hours. Order echocardiogram Thank you for involving us with care of this patient. Will continue to follow. Please call with questions Consult Attestations 2 Medical Necessity Statement: Care expected to cross 2 midnights. Coding Level of Care Code Acute Code for Chg Fwd Diagnoses Troponin level elevated R79.89 CHF (congestive heart failure) I50.9 COVID-19 U07.1 Acute hypoxic respiratory failure J96.01 Pulmonary edema J81.1
[2024-10-12 18:11] LABS: Partial Thromboplastin Time 89.5 SECONDS (23.9-36.7)
[2024-10-12] MEDS: lisinopril 10 mg Tablet PO (18:14)
--- NOTE | 2024-10-12 18:20 | PC.NURSE ---
SHift SUmmary: up to a chair for about 6 hours today, is very weak transferring, but can do so with 1 person assist. Oxygen reduced from 5LNC down to 1LNC. Restarted on home sotalol and lisinopril. Remains on heparin drip, echo results pending.
[2024-10-12] MEDS: atorvastatin 40 mg Tablet PO (20:48)
[2024-10-12] MEDS: primidone 50 mg Tablet 150 MG PO (20:48)
[2024-10-13] VITALS (49 sets, daily range): BP systolic 104–166; BP diastolic 45–99; PULSE 66–100; RESP 12–37; TEMP 36.5–36.9; O2SAT 92–98
[2024-10-13 01:33] LABS: Basophils % 0.3 %; Eosinophils # 0.1 10^3/uL (0.0-0.8); Eosinophils % 1.6 %; Hematocrit 38.8 % (36-47); Lymphocytes # 1.7 10^3/uL (0.8-4.8); Lymphocytes % 27.6 %; Mean Corpuscular HGB Conc 33.2 g/dL (30-55); Mean Corpuscular Hemoglobin 31.1 pg (27-33); Mean Corpuscular Volume 93.5 fl (85-98); Monocytes # 0.6 10^3/uL (0.2-0.9); Monocytes % 9.7 %; Neutrophils % 60.2 %; Nucleated Red Blood Cells % 0 %; Platelet Count 166 10^3/cmm (157-399); Red Blood Count 4.15 10^6/uL (3.85-5.65); Red Cell Distribution Width 13.9 % (12.1-15.1); White Blood Count 6.16 10^3/uL (3.29-11.43)
[2024-10-13 01:39] LABS: Partial Thromboplastin Time 68.1 SECONDS (23.9-36.7)
[2024-10-13 01:46] LABS: Alanine Aminotransferase 334 U/L (0-33); Albumin Level 3.3 g/dL (3.5-5.2); Alkaline Phosphatase 93 U/L (35-105); Anion Gap 13.3 (5-19); Aspartate Amino Transferase 336 U/L (0-32); Blood Urea Nitrogen 22 mg/dL (8-23); Calcium 8.6 mg/dL (8.5-10.5); Carbon Dioxide 28 mmol/L (22-29); Chloride 98 mmol/L (98-107); Creatinine Clr Calc Pharmacy 42.4619; Globulin 2.9 g/dL (1.3-4.6); Glucose 125 mg/dL (65-115); Magnesium 1.9 mg/dL (1.7-2.3); Osmolality Calculated 285 mOsm/kg (285-295); Phosphorus 2.7 mg/dL (2.5-4.5); Potassium 4.3 mmol/L (3.5-5.1); Sodium 135 mmol/L (136-145); Total Bilirubin 0.4 mg/dL (0.15-1.2); Total Protein 6.2 g/dL (6.6-8.7)
[2024-10-13] MEDS: morphine 4 mg/mL SDV 1 mL 1 MG IVP (02:15)
[2024-10-13] MEDS: dexamethasone 10 mg/mL INJ 6 MG IVP (02:20)
[2024-10-13] MEDS: pantoprazole 40 mg SDV IVP (02:21)
[2024-10-13] MEDS: piperacillin-tazobactam 3.375 GM in sodium chloride 0.9% (plus) 50 ML IV ×2 (06:51→15:11)
[2024-10-13] MEDS: atorvastatin 40 mg Tablet 20 MG PO (08:19)
[2024-10-13] MEDS: sennosides-docusate Tablet 0.5 TAB PO (08:19)
[2024-10-13] MEDS: lisinopril 10 mg Tablet PO ×2 (08:20→17:10)
[2024-10-13] MEDS: FUROsemide 40 mg Tablet PO (08:20)
[2024-10-13] MEDS: remdesivir 100 MG in sodium chloride 0.9% (100 ml) 80 ML IV (08:20)
[2024-10-13] MEDS: aspirin 81 mg EC Tablet PO (08:20)
[2024-10-13] MEDS: sotalol 80 mg Tablet 40 MG PO ×2 (08:20→21:38)
[2024-10-13] MEDS: allopurinol 100 mg Tablet PO (08:20)
[2024-10-13] MEDS: budesonide 0.5 mg/2 mL Neb INHALATION ×2 (08:36→22:10)
[2024-10-13] MEDS: ipratropium-albuterol 3 mL Neb INHALATION ×4 (08:36→22:10)
[2024-10-13 08:39] LABS: Partial Thromboplastin Time 67.7 SECONDS (23.9-36.7)
--- NOTE | 2024-10-13 11:51 | P.PN_ITS ---
<Statement entered by Ramon Paulson M.D - 10/14/24 09:53> Patient was evaluated and cared for in conjunction with an advanced practice practitioner. I personally examined the patient and reviewed the chart and all pertinent data including imaging, telemetry, and laboratory results. I discussed the patient in detail with the advanced practice practitioner. Please see their note for complete progress note, results and agreed upon plan of care for the patient. Patient feeling better. Still short of breath. Says had a panic attack today. GENERAL: Patient is alert and oriented HEART: Regular S1 and S2 LUNGS: Diminished air entry EXTREMITIES: Lower extremities with 2+ edema Assesment and Plan (1) Troponin level elevated: (2) CHF (congestive heart failure): (3) COVID-19: (4) Acute hypoxic respiratory failure: (5) Pulmonary edema: Continue IV anticoagulation. LV systolic function is reduced with EF of 30-35%. We will obtain records from outside facility to compare the LV function. Patient wants medical therapy Thank you for involving us with care of this patient. Will continue to follow. Please call with questions. Subjective 2 Subjective: Assessed patient today. She denies chest pain or shortness of breath. Oxygen saturation 95% on 1 L nasal cannula. We are still awaiting echo results. Medications: Reviewed: Yes Vitals/I&O/Wt Last Vital Signs Temp 98.5 F 10/13/24 05:00 Pulse 80 10/13/24 11:37 Resp 16 10/13/24 11:36 BP 154/67 10/13/24 10:00 Pulse Ox 95 10/13/24 11:36 O2 Del Method Nasal Cannula 10/13/24 11:36 O2 Flow Rate 1 10/13/24 11:36 FiO2 55 10/12/24 04:00 10/12/24 10/13/24 10/13/24 22:59 06:59 14:59 Intake Total 370.772 / 1396.205 235.96 / 1632.165 255 / 255 Output Total 525 / 525 Balance 370.772 / 371.205 235.96 / 607.165 -270 / -270 Weight last 48 hrs Weight 130 lb 1.164 oz Weight 130 lb 1.164 oz Weight 150 lb Physical Exam 2 Narrative: General: No apparent distress, healthy appearing, well nourished HENMT: normoceophalic Neck: No carotid bruit bilaterally Muskuloskeletal: Full ROM Respiratory: Normal respiratory effort, bilateral lower lobes with fine crackles present and expiratory wheezing, no use of accessory muscles Cardio: No JVD, regular rate, regular rhythm, S1 S2 normal, no murmurs, peripheral pulses 2+ radial palpated bilaterally GI: Slightly distended Extremities: Full ROM, normal, normal capillary refill, 1+ edema bilateral lower extremity Neuro: Alert and oriented x4, no focal motor deficits Psych: Affect normal, denies suicidal ideation, mental status grossly normal Skin: No rashes or lesions noted, no wounds Urinary Catheter Management: Shah: Cath Placed During This Visit: yes Reason for Continuing Indwelling Catheter: Accurate Measurement of Urinary Output in Critically Ill Patients Urinary Catheter Date of Insertion: 10/11/24 Urinary Catheter Time of Insertion: 23:16 Data 10/13/24 01:10 10/13/24 01:10 Micro: Microbiology 10/11/24 23:10 Blood Culture - Preliminary Blood NEGATIVE TO DATE 10/11/24 22:27 Blood Culture - Preliminary Blood NEGATIVE TO DATE A&P Assessment and plan (1) Troponin level elevated: (2) CHF (congestive heart failure): (3) COVID-19: (4) Acute hypoxic respiratory failure: (5) Pulmonary edema: Plan Patient continues to want medical therapy only which is appropriate. Currently on heparin drip. Once 48 hours is up, may transition back to oral Eliquis. She does have some edema and crackles. Lasix 40 PO was added back. We will see how she responds to this. Will watch creatinine as well. No chest pain noted. No acute EKG changes. Echo results pending. Further recommendations after. Attestations 2 Medical Necessity Statement*: Deferred to primary. Coding Level of Care Code Acute Code for Chg Fwd Diagnoses Troponin level elevated R79.89 CHF (congestive heart failure) I50.9 COVID-19 U07.1 Acute hypoxic respiratory failure J96.01 Pulmonary edema J81.1
[2024-10-13] MEDS: vancomycin 500 MG in sodium chloride 0.9% (plus) 100 ML 200 MG IV (12:45)
[2024-10-13 13:15] LABS: Creatine Phosphokinase 41 U/L (26-192)
[2024-10-13 14:43] LABS: Partial Thromboplastin Time 54.7 SECONDS (23.9-36.7)
[2024-10-13] MEDS: ALPRAZolam 0.5 mg Tablet 0.25 MG PO (17:10)
--- NOTE | 2024-10-13 17:53 | P.PN_ITS ---
Subjective 2 Subjective: States feeling slightly better today. No new complaints. Currently on high flow nasal cannula. Medications: Reviewed: Yes Vitals/I&O/Wt Last Vital Signs Temp 98.5 F 10/13/24 05:00 Pulse 86 10/13/24 16:00 Resp 18 10/13/24 16:00 BP 134/81 10/13/24 16:00 Pulse Ox 95 10/13/24 16:00 O2 Del Method Nasal Cannula 10/13/24 11:36 O2 Flow Rate 1 10/13/24 15:22 FiO2 55 10/12/24 04:00 10/13/24 10/13/24 10/13/24 06:59 14:59 22:59 Intake Total 235.96 / 1632.165 576.28 / 576.28 Output Total 525 / 525 1100 / 1625 Balance 235.96 / 607.165 51.28 / 51.28 -1100 / -1048.72 Weight last 48 hrs Weight 59 kg Weight 59 kg Weight 68.039 kg Physical Exam 2 Narrative: General: No acute distress, AO x3 course Parkinson tremors,, chronically ill- appearing HEENT: PERRLA, pupils bilaterally equal and reactive, pallors not present Chest: Normal vesicular breath sounds, no added sounds, equal good air entry bilaterally CVS: S1-S2 regular, no murmurs, no tachycardia, no gallops, no rubs Abdomen: Soft, nontender, no organomegaly, bowel sounds present Neuro: No focal deficits, coarse tremors related to Parkinson's Urinary Catheter Management: Shah: Cath Placed During This Visit: yes Reason for Continuing Indwelling Catheter: Accurate Measurement of Urinary Output in Critically Ill Patients Urinary Catheter Date of Insertion: 10/11/24 Urinary Catheter Time of Insertion: 23:16 Data 10/13/24 01:10 10/13/24 01:10 Micro: Microbiology 10/11/24 23:10 Blood Culture - Preliminary Blood NEGATIVE TO DATE 10/11/24 22:27 Blood Culture - Preliminary Blood NEGATIVE TO DATE A&P Assessment and plan (1) Acute hypoxic respiratory failure: (2) Pulmonary edema: (3) COVID-19: (4) Acidosis, lactic: (5) Pneumonia: (6) NSTEMI (non-ST elevated myocardial infarction): (7) Acute respiratory distress: (8) CHF (congestive heart failure): (9) Sepsis: Plan Acute hypoxic respiratory failure -Multifactorial -COVID-19 pneumonia -Concerns for secondary bacterial pneumonia -Concerns for fluid overload, systolic CHF, pulmonary edema ? Plan ? Monitor respiratory status closely ? Continue BiPAP ? Monitor in ICU ? Decadron 6 mg IV push every 24 hours ? Start remdesivir ? Continue vancomycin ? Continue Zosyn ? Lasix 40 mg IV push once ? Cardiac echo -CT angiogram the chest # DuoNeb # Budesonide # Monitor respiratory status closely # Patient is DNR/DNI # Heparin drip for DVT prophylaxis Sepsis secondary to COVID-19, pneumonia, sepsis features met given lactic acidosis, acute respiratory failure, NSTEMI ? Serial EKGs, serial troponins, telemetry monitoring ? Continue aspirin, statin -heparin drip Lactic acidosis Atrial fibrillation History of CAD, history of CABG 10/13/2024 Continue treatment for COVID-pneumonia with remdesivir. Dexamethasone. Pending echocardiogram. Continue heparin drip for NSTEMI. Noted to have coarse tremors related to Parkinson's. Further orders to be dependent on results of echo Attestations 2 Medical Necessity Statement*: continued treatmetn for COVID, NSTEMI Coding Level of Care Code Acute Code for Chg Fwd High MDM includes number and complexity of problems actively addressed during encounter, amount and/or complexity of data reviewed/ordered and described risk of complication, morbidity or mortality of management as documented Diagnoses Acute hypoxic respiratory failure J96.01 Pulmonary edema J81.1 COVID-19 U07.1 Acidosis, lactic E87.20 Pneumonia J18.9 NSTEMI (non-ST elevated myocardial infarction) I21.4 Acute respiratory distress R06.03 CHF (congestive heart failure) I50.9 Sepsis A41.9
[2024-10-13] MEDS: heparin drip 25,000 UNIT/500 ML PREMIX 13.33 UNIT IV (19:18)
[2024-10-13 21:13] LABS: MRSA PCR OZH (swab) NOT DETECTED (Not Detecte)
[2024-10-13] MEDS: atorvastatin 40 mg Tablet PO (21:39)
[2024-10-13] MEDS: primidone 50 mg Tablet 150 MG PO (21:39)
[2024-10-14] VITALS (34 sets, daily range): BP systolic 93–172; BP diastolic 43–107; PULSE 60–105; RESP 14–27; TEMP 36.1–37.2; O2SAT 91–97
[2024-10-14] MEDS: piperacillin-tazobactam 3.375 GM in sodium chloride 0.9% (plus) 50 ML IV ×4 (00:15→22:32)
[2024-10-14] MEDS: VANCOMYCIN ADD-Vantage 750 MG in 0.9% NaCl ADD-Vantage 250 ML 250 MG IV ×2 (00:31→13:30)
[2024-10-14] MEDS: acetaminophen 325 mg Tablet 650 MG PO ×3 (01:41→21:06)
[2024-10-14] MEDS: dexamethasone 10 mg/mL INJ 6 MG IVP (03:24)
[2024-10-14] MEDS: pantoprazole 40 mg SDV IVP (03:24)
[2024-10-14 03:48] LABS: Basophils % 0.3 %; Eosinophils # 0.1 10^3/uL (0.0-0.8); Eosinophils % 1.7 %; Hematocrit 40.8 % (36-47); Lymphocytes # 1.8 10^3/uL (0.8-4.8); Lymphocytes % 31.2 %; Mean Corpuscular HGB Conc 33.1 g/dL (30-55); Mean Corpuscular Hemoglobin 31.4 pg (27-33); Mean Corpuscular Volume 94.9 fl (85-98); Mean Platelet Volume 10.6 fL (7.4-10.4); Monocytes # 0.6 10^3/uL (0.2-0.9); Monocytes % 9.7 %; Neutrophils # 3.31 10^3/uL (1.8-7.7); Neutrophils % 56.1 %; Nucleated Red Blood Cells % 0 %; Platelet Count 198 10^3/cmm (157-399); Red Cell Distribution Width 13.8 % (12.1-15.1)
[2024-10-14 04:19] LABS: Alanine Aminotransferase 319 U/L (0-33); Albumin Level 3.3 g/dL (3.5-5.2); Alkaline Phosphatase 95 U/L (35-105); Anion Gap 15.8 (5-19); Aspartate Amino Transferase 210 U/L (0-32); Blood Urea Nitrogen 21 mg/dL (8-23); Calcium 8.4 mg/dL (8.5-10.5); Carbon Dioxide 26 mmol/L (22-29); Chloride 96 mmol/L (98-107); Creatinine Clr Calc Pharmacy 42.4619; Globulin 2.9 g/dL (1.3-4.6); Glucose 164 mg/dL (65-115); Osmolality Calculated 285 mOsm/kg (285-295); Potassium 3.8 mmol/L (3.5-5.1); Sodium 134 mmol/L (136-145); Total Bilirubin 0.5 mg/dL (0.15-1.2); Total Protein 6.2 g/dL (6.6-8.7)
[2024-10-14] MEDS: remdesivir 100 MG in sodium chloride 0.9% (100 ml) 80 ML IV (08:09)
[2024-10-14] MEDS: ipratropium-albuterol 3 mL Neb INHALATION ×4 (08:29→21:17)
[2024-10-14] MEDS: budesonide 0.5 mg/2 mL Neb INHALATION ×2 (08:29→21:17)
--- NOTE | 2024-10-14 08:47 | P.PN_ITS ---
Subjective 2 Subjective: Patient is doing better. No chest pain. Vitals/I&O/Wt Last Vital Signs Temp 97.6 F 10/14/24 04:00 Pulse 77 10/14/24 08:30 Resp 18 10/14/24 08:30 BP 93/43 10/14/24 06:30 Pulse Ox 94 10/14/24 08:30 O2 Del Method Room Air 10/14/24 08:30 O2 Flow Rate 1 10/14/24 06:30 FiO2 55 10/12/24 04:00 10/13/24 10/14/24 10/14/24 22:59 06:59 14:59 Intake Total 670.324 / 1246.604 397.753 / 1644.357 Output Total 1100 / 1625 1000 / 2625 Balance -429.676 / -378.396 -602.247 / -980.643 Physical Exam 2 Narrative: GENERAL: Patient is alert, awake and oriented x3. HEART: Irregularly irregular, grade 2/6 systolic murmur LUNGS: Diminished air entry CENTRAL NERVOUS SYSTEM: Grossly nonfocal. EXTREMITIES: Lower extremities with 1+ edema bilaterally. Urinary Catheter Management: Shah: Cath Placed During This Visit: yes Reason for Continuing Indwelling Catheter: Accurate Measurement of Urinary Output in Critically Ill Patients Urinary Catheter Date of Insertion: 10/11/24 Urinary Catheter Time of Insertion: 23:16 Data 10/15/24 05:54 10/15/24 05:54 A&P Assessment and plan (1) Troponin level elevated: (2) CHF (congestive heart failure): (3) COVID-19: (4) Acute hypoxic respiratory failure: (5) Pulmonary edema: Plan We obtained records from [facility] that shows prior EF of 45%. EF has further reduced now. However she is not having active chest pain. Shared decision has been made to continue with medical therapy. She is completed 48 hours of IV anticoagulation. Can consider switching to oral anticoagulation. Thank you for involving us with care of this patient. Will continue to follow. Please call with questions Attestations 2 Medical Necessity Statement*: Care expected to cross 2 midnights. Coding Level of Care Code Acute Code for Chg Fwd Diagnoses Troponin level elevated R79.89 CHF (congestive heart failure) I50.9 COVID-19 U07.1 Acute hypoxic respiratory failure J96.01 Pulmonary edema J81.1
[2024-10-14] MEDS: lisinopril 10 mg Tablet PO ×2 (08:52→17:33)
[2024-10-14] MEDS: aspirin 81 mg EC Tablet PO (08:53)
[2024-10-14] MEDS: FUROsemide 40 mg Tablet PO (08:53)
[2024-10-14] MEDS: allopurinol 100 mg Tablet PO (08:53)
[2024-10-14] MEDS: sotalol 80 mg Tablet 40 MG PO ×2 (08:55→21:08)
[2024-10-14 10:48] LABS: Partial Thromboplastin Time 46.9 SECONDS (23.9-36.7)
[2024-10-14] MEDS: heparin 5,000 unit/mL INJ 1 mL IVP (11:19)
--- NOTE | 2024-10-14 12:36 | P.PN_ITS ---
Subjective 2 Subjective: no new complaints, weaned off 02. Medications: Reviewed: Yes Vitals/I&O/Wt Last Vital Signs Temp 98.2 F 10/14/24 12:00 Pulse 79 10/14/24 12:00 Resp 14 10/14/24 12:00 BP 157/72 10/14/24 12:00 Pulse Ox 95 10/14/24 12:00 O2 Del Method Room Air 10/14/24 12:00 O2 Flow Rate 1 10/14/24 06:30 FiO2 55 10/12/24 04:00 10/13/24 10/14/24 10/14/24 22:59 06:59 14:59 Intake Total 670.324 / 1246.604 397.753 / 1644.357 576.035 / 576.035 Output Total 1100 / 1625 1000 / 2625 851 / 851 Balance -429.676 / -378.396 -602.247 / -980.643 -274.965 / -274.965 Physical Exam 2 Narrative: General: No acute distress, AO x3 course Parkinson tremors,, chronically ill- appearing HEENT: PERRLA, pupils bilaterally equal and reactive, pallors not present Chest: Normal vesicular breath sounds, no added sounds, equal good air entry bilaterally CVS: S1-S2 regular, no murmurs, no tachycardia, no gallops, no rubs Abdomen: Soft, nontender, no organomegaly, bowel sounds present Neuro: No focal deficits, coarse tremors related to Parkinson's Urinary Catheter Management: Shah: Cath Placed During This Visit: yes Reason for Continuing Indwelling Catheter: Accurate Measurement of Urinary Output in Critically Ill Patients Urinary Catheter Date of Insertion: 10/11/24 Urinary Catheter Time of Insertion: 23:16 Data 10/14/24 03:25 10/14/24 03:25 A&P Assessment and plan (1) Acute hypoxic respiratory failure: (2) Pulmonary edema: (3) COVID-19: (4) Acidosis, lactic: (5) Pneumonia: (6) NSTEMI (non-ST elevated myocardial infarction): (7) Acute respiratory distress: (8) CHF (congestive heart failure): (9) Sepsis: Plan Acute hypoxic respiratory failure -Multifactorial -COVID-19 pneumonia -Concerns for secondary bacterial pneumonia -Concerns for fluid overload, systolic CHF, pulmonary edema ? Plan ? Monitor respiratory status closely ? Continue BiPAP ? Monitor in ICU ? Decadron 6 mg IV push every 24 hours ? Start remdesivir ? Continue vancomycin ? Continue Zosyn ? Lasix 40 mg IV push once ? Cardiac echo -CT angiogram the chest # DuoNeb # Budesonide # Monitor respiratory status closely # Patient is DNR/DNI # Heparin drip for DVT prophylaxis Sepsis secondary to COVID-19, pneumonia, sepsis features met given lactic acidosis, acute respiratory failure, NSTEMI ? Serial EKGs, serial troponins, telemetry monitoring ? Continue aspirin, statin -heparin drip Lactic acidosis Atrial fibrillation History of CAD, history of CABG 10/13/2024 Continue treatment for COVID-pneumonia with remdesivir. Dexamethasone. Pending echocardiogram. Continue heparin drip for NSTEMI. Noted to have coarse tremors related to Parkinson's. Further orders to be dependent on results of echo 10/14/24: Continue treatment for COVID pneumonia. Day 3 remdisivir today, continue dexamethasone. Echo shows LV systolic function is moderate to severely reduced with EF of 30-35%. requesting prior studies from [facility] to compare.For now continue heparin gtt, Appreciate cardiology recommendations. PT/OT assessment ordered to enable appropriate disposition planning. Attestations 2 Medical Necessity Statement*: continue treatment for COVID pneumonia, NSTEMI , disposition planning Coding Level of Care Code Acute Code for [facility] Fwd Diagnoses Acute hypoxic respiratory failure J96.01 Pulmonary edema J81.1 COVID-19 U07.1 Acidosis, lactic E87.20 Pneumonia J18.9 NSTEMI (non-ST elevated myocardial infarction) I21.4 Acute respiratory distress R06.03 CHF (congestive heart failure) I50.9 Sepsis A41.9
[2024-10-14 18:05] LABS: Partial Thromboplastin Time 97.9 SECONDS (23.9-36.7)
[2024-10-14] MEDS: ondansetron 2 mg/ML SDV 2 mL 4 MG IVP (19:53)
[2024-10-14] MEDS: morphine 4 mg/mL SDV 1 mL 1 MG IVP (19:53)
[2024-10-14] MEDS: primidone 50 mg Tablet 150 MG PO (21:05)
[2024-10-14] MEDS: ALPRAZolam 0.5 mg Tablet 0.25 MG PO (21:06)
[2024-10-14] MEDS: atorvastatin 40 mg Tablet PO (21:07)
[2024-10-14] MEDS: HYDROmorphone 1 mg/mL INJ 1 mL IVP (22:26)
--- NOTE | 2024-10-14 22:37 | XRR_ITS ---
PROCEDURE INFORMATION: Exam: XR Left Wrist Exam date and time: 10/14/2024 10:46 PM Age: 88 years old Clinical indication: Injury or trauma; Fall; Blunt trauma (contusions or hematomas); Wrist; Left; Additional info: Acute L. Wrist injury with hematoma TECHNIQUE: Imaging protocol: Radiologic exam of the left wrist. Views: 3 or more views. COMPARISON: No relevant prior studies available. FINDINGS: Bones/joints: Advanced degenerative changes of the 1st carpometacarpal joint. No definite acute fracture. No dislocation. Soft tissues: Diffuse soft tissue swelling along the dorsum of the hand. XR/XR wrist LT min 3V* [id number] IMPRESSION: No definite acute osseous findings. Soft tissue swelling throughout the dorsum of the hand. CT could be considered for further assessment if warranted.
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
[2024-10-15] VITALS (19 sets, daily range): BP systolic 119–156; BP diastolic 62–106; PULSE 61–79; RESP 12–24; TEMP 36.5–37.1; O2SAT 82–100
[2024-10-15 00:45] LABS: Partial Thromboplastin Time 69.3 SECONDS (23.9-36.7)
[2024-10-15] MEDS: VANCOMYCIN ADD-Vantage 750 MG in 0.9% NaCl ADD-Vantage 250 ML 250 MG IV ×2 (00:48→12:59)
[2024-10-15] MEDS: dexamethasone 10 mg/mL INJ 6 MG IVP (02:32)
[2024-10-15] MEDS: pantoprazole 40 mg SDV IVP (02:32)
--- NOTE | 2024-10-15 05:47 | PC.NURSE ---
received patient from ICU, patient has large hematoma to left hand, was reported that it had happened the day before, patient had just received morphine prior to transfer, patient was still c/o pain to left hand, stating that it is unbearable and would like a physician to look at it, notified Dr Gee who saw patient and ordered dilaudid X1 and stat x-ray, pain relieved by dilaudid, patient is up to chair with left hand resting on pillow, x-ray taken, Dr Gee says she will order CT scan for AM
[2024-10-15 06:10] LABS: Basophils % 0.4 %; Eosinophils # 0.1 10^3/uL (0.0-0.8); Eosinophils % 1.2 %; Lymphocytes # 1.2 10^3/uL (0.8-4.8); Lymphocytes % 16.7 %; Mean Corpuscular HGB Conc 32.8 g/dL (30-55); Mean Corpuscular Hemoglobin 31.1 pg (27-33); Mean Corpuscular Volume 94.7 fl (85-98); Mean Platelet Volume 10.2 fL (7.4-10.4); Monocytes # 0.4 10^3/uL (0.2-0.9); Monocytes % 5.8 %; Neutrophils # 5.18 10^3/uL (1.8-7.7); Nucleated Red Blood Cells % 0 %; Platelet Count 220 10^3/cmm (157-399); Red Blood Count 4.12 10^6/uL (3.85-5.65); Red Cell Distribution Width 13.7 % (12.1-15.1)
[2024-10-15 06:27] LABS: Alanine Aminotransferase 243 U/L (0-33); Albumin Level 3.2 g/dL (3.5-5.2); Alkaline Phosphatase 98 U/L (35-105); Anion Gap 15.6 (5-19); Aspartate Amino Transferase 130 U/L (0-32); Blood Urea Nitrogen 21 mg/dL (8-23); Calcium 8.5 mg/dL (8.5-10.5); Carbon Dioxide 27 mmol/L (22-29); Chloride 97 mmol/L (98-107); Creatinine Clr Calc Pharmacy 42.4619; Glucose 174 mg/dL (65-115); Osmolality Calculated 287 mOsm/kg (285-295); Potassium 4.6 mmol/L (3.5-5.1); Sodium 135 mmol/L (136-145); Total Bilirubin 0.4 mg/dL (0.15-1.2); Total Protein 6.2 g/dL (6.6-8.7)
[2024-10-15] MEDS: morphine 4 mg/mL SDV 1 mL 1 MG IVP (06:41)
[2024-10-15] MEDS: heparin 5,000 unit/mL INJ 1 mL IVP (06:42)
[2024-10-15] MEDS: piperacillin-tazobactam 3.375 GM in sodium chloride 0.9% (plus) 50 ML IV ×2 (06:46→14:32)
[2024-10-15] MEDS: remdesivir 100 MG in sodium chloride 0.9% (100 ml) 80 ML IV (06:50)
[2024-10-15] MEDS: budesonide 0.5 mg/2 mL Neb INHALATION (07:48)
[2024-10-15] MEDS: ipratropium-albuterol 3 mL Neb INHALATION ×3 (07:48→15:45)
[2024-10-15] MEDS: lisinopril 10 mg Tablet PO ×2 (08:25→17:51)
[2024-10-15] MEDS: sotalol 80 mg Tablet 40 MG PO ×2 (08:25→20:43)
[2024-10-15] MEDS: aspirin 81 mg EC Tablet PO (08:26)
[2024-10-15] MEDS: allopurinol 100 mg Tablet PO (08:26)
[2024-10-15] MEDS: FUROsemide 40 mg Tablet PO (08:26)
--- NOTE | 2024-10-15 08:46 | P.PN_ITS ---
Subjective 2 Subjective: Patient denies chest pain or shortness of breath. Has left hand swelling. Vitals/I&O/Wt Last Vital Signs Temp 98.4 F 10/15/24 07:44 Pulse 74 10/15/24 07:58 Resp 16 10/15/24 07:51 BP 156/83 10/15/24 07:44 Pulse Ox 98 10/15/24 07:51 O2 Del Method Nasal Cannula 10/15/24 07:58 O2 Flow Rate 1 10/15/24 07:58 FiO2 55 10/12/24 04:00 10/14/24 10/15/24 10/15/24 22:59 06:59 14:59 Intake Total 763.333 / 1589.368 896.095 / 2485.463 100 / 100 Output Total 825 / 1676 1000 / 2676 Balance -61.667 / -86.632 -103.905 / -190.537 100 / 100 Weight last 48 hrs Weight 130 lb 1.164 oz Physical Exam 2 Narrative: GENERAL: Patient is alert, awake and oriented x3. HEART: Irregularly irregular, grade 2/6 systolic murmur LUNGS: Diminished air entry CENTRAL NERVOUS SYSTEM: Grossly nonfocal. EXTREMITIES: Lower extremities with 1+ edema bilaterally. Urinary Catheter Management: Shah: Cath Placed During This Visit: yes Reason for Continuing Indwelling Catheter: Accurate Measurement of Urinary Output in Critically Ill Patients Urinary Catheter Date of Insertion: 10/11/24 Urinary Catheter Time of Insertion: 23:16 Data 10/15/24 05:54 10/15/24 05:54 A&P Assessment and plan (1) Troponin level elevated: (2) CHF (congestive heart failure): (3) COVID-19: (4) Acute hypoxic respiratory failure: (5) Pulmonary edema: Plan Patient is stable from cardiac standpoint. Left hand has significant swelling with bruising. Can hold heparin for now. Resume anticoagulation once able. Thank you for involving us with care of this patient. Will continue to follow. Please call with questions Attestations 2 Medical Necessity Statement*: Care expected to cross 2 midnights. Coding Level of Care Code Acute Code for Chg Fwd Diagnoses Troponin level elevated R79.89 CHF (congestive heart failure) I50.9 COVID-19 U07.1 Acute hypoxic respiratory failure J96.01 Pulmonary edema J81.1
--- NOTE | 2024-10-15 09:44 | PC.NURSE ---
Dr Paulson ordered to stop the heparin drip for now due to her left hand.
--- NOTE | 2024-10-15 09:56 | PC.NURSE ---
Provider is updated that patients pain in her left wrist/hand is 8/10. Provider ordered morphine 2mg Q4hr to start now. order is placed.
[2024-10-15] MEDS: morphine 4 mg/mL SDV 1 mL 2 MG IVP ×3 (10:14→23:09)
[2024-10-15 11:37] LABS: Vancomycin Trough 15.3 ug/mL (10-15)
--- NOTE | 2024-10-15 12:05 | PC.SOCIAL ---
IMM updated IMM dated and initialed, copy given to patient and copy placed in chart.
--- NOTE | 2024-10-15 14:27 | P.PN_ITS ---
Subjective 2 Subjective: fells better today, remains on RA. She has devloped a large hematoma over her right hand. Heparin drip disocntinued for the same Medications: Reviewed: Yes Vitals/I&O/Wt Last Vital Signs Temp 98.5 F 10/15/24 12:00 Pulse 68 10/15/24 12:00 Resp 14 10/15/24 12:00 BP 127/62 10/15/24 12:00 Pulse Ox 93 10/15/24 12:00 O2 Del Method Room Air 10/15/24 12:00 O2 Flow Rate 1 10/15/24 11:10 FiO2 55 10/12/24 04:00 10/14/24 10/15/24 10/15/24 22:59 06:59 14:59 Intake Total 763.333 / 1589.368 896.095 / 2485.463 668.833 / 668.833 Output Total 825 / 1676 1000 / 2676 Balance -61.667 / -86.632 -103.905 / -190.537 668.833 / 668.833 Weight last 48 hrs Weight 59 kg Physical Exam 2 Narrative: General: No acute distress, AO x3 course Parkinson tremors,, chronically ill- appearing HEENT: PERRLA, pupils bilaterally equal and reactive, pallors not present Chest: Normal vesicular breath sounds, no added sounds, equal good air entry bilaterally CVS: S1-S2 regular, no murmurs, no tachycardia, no gallops, no rubs Abdomen: Soft, nontender, no organomegaly, bowel sounds present Neuro: No focal deficits, coarse tremors related to Parkinson's Urinary Catheter Management: Shah: Cath Placed During This Visit: yes Reason for Continuing Indwelling Catheter: Accurate Measurement of Urinary Output in Critically Ill Patients Urinary Catheter Date of Insertion: 10/11/24 Urinary Catheter Time of Insertion: 23:16 Data 10/15/24 05:54 10/15/24 05:54 A&P Assessment and plan (1) Acute hypoxic respiratory failure: (2) Pulmonary edema: (3) COVID-19: (4) Acidosis, lactic: (5) Pneumonia: (6) NSTEMI (non-ST elevated myocardial infarction): (7) Acute respiratory distress: (8) CHF (congestive heart failure): (9) Sepsis: Plan Acute hypoxic respiratory failure -Multifactorial -COVID-19 pneumonia -Concerns for secondary bacterial pneumonia -Concerns for fluid overload, systolic CHF, pulmonary edema ? Plan ? Monitor respiratory status closely ? Continue BiPAP ? Monitor in ICU ? Decadron 6 mg IV push every 24 hours ? Start remdesivir ? Continue vancomycin ? Continue Zosyn ? Lasix 40 mg IV push once ? Cardiac echo -CT angiogram the chest # DuoNeb # Budesonide # Monitor respiratory status closely # Patient is DNR/DNI # Heparin drip for DVT prophylaxis Sepsis secondary to COVID-19, pneumonia, sepsis features met given lactic acidosis, acute respiratory failure, NSTEMI ? Serial EKGs, serial troponins, telemetry monitoring ? Continue aspirin, statin -heparin drip Lactic acidosis Atrial fibrillation History of CAD, history of CABG 10/13/2024 Continue treatment for COVID-pneumonia with remdesivir. Dexamethasone. Pending echocardiogram. Continue heparin drip for NSTEMI. Noted to have coarse tremors related to Parkinson's. Further orders to be dependent on results of echo 10/14/24: Continue treatment for COVID pneumonia. Day 3 remdisivir today, continue dexamethasone. Echo shows LV systolic function is moderate to severely reduced with EF of 30-35%. requesting prior studies from [place] to compare.For now continue heparin gtt, Appreciate cardiology recommendations. PT/OT assessment ordered to enable appropriate disposition planning. 10/15/24 day 4 remdisivir and steroids today. Patient clinically better. Overnight developed acute swelling over the left hand and wrist which appears to be a hematoma. She has pain with movement at this site. X ray negative for any fractures. No neurovascular deficits currently. Completed 48 hrs of a/c , off heparin drip now. Will wait for hematoma to be improving prior to placing her back on Eliquis. Will transition as many meds as possible to oral to avoid further pricks or need to replace Ivs given skin friability. Ongoing disposition planning , patient lives with elderly sister who is limited in taking care of her. Encourage participation with PT/OT. D/c iv vancomycin givem MRSA nares screen negative Attestations 2 Medical Necessity Statement*: ongoing appropriate disposition planning, treatment for pneumonia Coding Level of Care Code Acute Code for [facility] Diagnoses Acute hypoxic respiratory failure J96.01 Pulmonary edema J81.1 COVID-19 U07.1 Acidosis, lactic E87.20 Pneumonia J18.9 NSTEMI (non-ST elevated myocardial infarction) I21.4 Acute respiratory distress R06.03 CHF (congestive heart failure) I50.9 Sepsis A41.9
--- NOTE | 2024-10-15 15:42 | PC.NURSE ---
Addendum entered by Kirti Shields RN 10/15/24 15:46: Provider ordered an ultrasound and doppler and ordered to place ice on it. Original Note: Provider is updated on patients left hand/wrist. Nursing thinks it is getting more swollen and patient said it is very painful.. We have it elevated. It looks worse than it did this morning, redness is also in between her 1st and 2nd digit.
--- NOTE | 2024-10-15 15:45 | CTR_ITS ---
PROCEDURE INFORMATION: Exam: CT Left Upper Extremity With Contrast, Hand Exam date and time: 10/15/2024 5:06 PM Age: 88 years old Clinical indication: Swelling; Hand; Left; Additional info: Worsening hematoma, worsening hematoma left hand, evaluate for active bleeding TECHNIQUE: Imaging protocol: Computed tomography of the left upper extremity with contrast. Exam focused on the hand. Radiation optimization: All CT scans at this facility use at least one of these dose optimization techniques: automated exposure control; mA and/or kV adjustment per patient size (includes targeted exams where dose is matched to clinical indication); or iterative reconstruction. Contrast material: OMNI 350; Contrast volume: 100 ml; Contrast route: INTRAVENOUS (IV); COMPARISON: CR ([facility], ) 10/14/2024 10:46 PM RADIATION DOSE METRICS: Total DLP (mGy-cm): 759.32 FINDINGS: Bones/joints: Normal. No acute fracture or dislocation. Soft tissues: Large hematoma along the dorsal aspect of the hand and wrist measuring up to 5.3 x 2.7 x 13.3 cm. Other findings: The study was not performed in the precontrast and arterial phases and active extravasation cannot be excluded. CT/CT hand LT w con [id number] IMPRESSION: 1. Large hematoma along the dorsal aspect of the hand and wrist measuring up to 5.3 x 2.7 x 13.3 cm. 2. The study was not performed in the precontrast and arterial phases and active extravasation cannot be excluded.
--- NOTE | 2024-10-15 16:46 | PC.NURSE ---
Patient off the unit for CTscan
[2024-10-15] MEDS: HYDROcodone-acetaminophen 5-325 mg Tablet 1 TAB PO (17:51)
[2024-10-15] MEDS: amoxicillin-clav 875-125 mg Tablet 1 TAB PO (17:52)
[2024-10-15] MEDS: atorvastatin 40 mg Tablet PO (20:43)
[2024-10-15] MEDS: primidone 50 mg Tablet 150 MG PO (20:43)
[2024-10-16] VITALS (10 sets, daily range): BP systolic 138–153; BP diastolic 63–72; PULSE 64–77; RESP 14–28; TEMP 36.6–36.9; O2SAT 92–100
[2024-10-16 06:47] LABS: Basophils % 0.4 %; Eosinophils # 0.3 10^3/uL (0.0-0.8); Eosinophils % 3.6 %; Hematocrit 37.3 % (36-47); Lymphocytes # 1.8 10^3/uL (0.8-4.8); Lymphocytes % 23.1 %; Mean Corpuscular HGB Conc 32.7 g/dL (30-55); Mean Corpuscular Hemoglobin 31.3 pg (27-33); Mean Corpuscular Volume 95.6 fl (85-98); Mean Platelet Volume 10.1 fL (7.4-10.4); Monocytes # 0.8 10^3/uL (0.2-0.9); Monocytes % 10.3 %; Neutrophils # 4.92 10^3/uL (1.8-7.7); Neutrophils % 61.7 %; Nucleated Red Blood Cells % 0 %; Platelet Count 239 10^3/cmm (157-399); Red Cell Distribution Width 14.1 % (12.1-15.1); White Blood Count 7.97 10^3/uL (3.29-11.43)
[2024-10-16 07:08] LABS: Alanine Aminotransferase 193 U/L (0-33); Albumin Level 3.1 g/dL (3.5-5.2); Alkaline Phosphatase 110 U/L (35-105); Anion Gap 13.1 (5-19); Aspartate Amino Transferase 115 U/L (0-32); Blood Urea Nitrogen 23 mg/dL (8-23); Calcium 8.7 mg/dL (8.5-10.5); Carbon Dioxide 27 mmol/L (22-29); Chloride 98 mmol/L (98-107); Creatinine Clr Calc Pharmacy 42.4619; Globulin 2.8 g/dL (1.3-4.6); Glucose 120 mg/dL (65-115); Osmolality Calculated 283 mOsm/kg (285-295); Potassium 4.1 mmol/L (3.5-5.1); Sodium 134 mmol/L (136-145); Total Bilirubin 0.3 mg/dL (0.15-1.2); Total Protein 5.9 g/dL (6.6-8.7)
[2024-10-16] MEDS: remdesivir 100 MG in sodium chloride 0.9% (100 ml) 80 ML IV (07:27)
[2024-10-16] MEDS: ipratropium-albuterol 3 mL Neb INHALATION ×2 (07:39→11:15)
[2024-10-16] MEDS: budesonide 0.5 mg/2 mL Neb INHALATION (07:39)
[2024-10-16] MEDS: sennosides-docusate Tablet 0.5 TAB PO (08:38)
[2024-10-16] MEDS: sotalol 80 mg Tablet 40 MG PO (08:39)
[2024-10-16] MEDS: amoxicillin-clav 875-125 mg Tablet 1 TAB PO (08:39)
[2024-10-16] MEDS: pantoprazole DR 40 mg Tablet PO (08:39)
[2024-10-16] MEDS: lisinopril 10 mg Tablet PO (08:39)
[2024-10-16] MEDS: allopurinol 100 mg Tablet PO (08:39)
[2024-10-16] MEDS: aspirin 81 mg EC Tablet PO (08:39)
[2024-10-16] MEDS: FUROsemide 40 mg Tablet PO (08:39)
[2024-10-16] MEDS: ondansetron 2 mg/ML SDV 2 mL 4 MG IVP (09:19)
--- NOTE | 2024-10-16 09:23 | P.PN_ITS ---
Subjective 2 Subjective: supplemental 02 at 1 lpm this morning. hematoma over left hand looks better, Swollen left hand, able to move fingers, though restricted due to movements. CT hand was oredred last evening due to expanding hematoma but study was inconclusive for the same. Medications: Reviewed: Yes Vitals/I&O/Wt Last Vital Signs Temp 97.8 F 10/16/24 07:17 Pulse 77 10/16/24 07:50 Resp 16 10/16/24 07:40 BP 151/68 10/16/24 07:17 Pulse Ox 97 10/16/24 07:50 O2 Del Method Nasal Cannula 10/16/24 07:50 O2 Flow Rate 1 10/16/24 07:50 FiO2 55 10/12/24 04:00 10/15/24 10/16/24 10/16/24 22:59 06:59 14:59 Intake Total 584.182 / 1253.015 400 / 1653.015 240 / 240 Output Total 950 / 950 760 / 1710 Balance -365.818 / 303.015 -360 / -56.985 240 / 240 Weight last 48 hrs Weight 59 kg Weight 59 kg Physical Exam 2 Narrative: General: No acute distress, AO x3 HEENT: PERRLA, pupils bilaterally equal and reactive, pallors not present Chest: Normal vesicular breath sounds, no added sounds, equal good air entry bilaterally CVS: S1-S2 regular, no murmurs, no tachycardia, no gallops, no rubs Abdomen: Soft, nontender, no organomegaly, bowel sounds present Neuro: No focal deficits, no facial deformity, AO x3, power 5/5 in all limbs Urinary Catheter Management: Shah: Cath Placed During This Visit: yes Reason for Continuing Indwelling Catheter: Accurate Measurement of Urinary Output in Critically Ill Patients Urinary Catheter Date of Insertion: 10/11/24 Urinary Catheter Time of Insertion: 23:16 Data 10/16/24 06:33 10/16/24 06:33 A&P Assessment and plan (1) Acute hypoxic respiratory failure: (2) Pulmonary edema: (3) COVID-19: (4) Acidosis, lactic: (5) Pneumonia: (6) NSTEMI (non-ST elevated myocardial infarction): (7) Acute respiratory distress: (8) CHF (congestive heart failure): (9) Sepsis: Plan Acute hypoxic respiratory failure -Multifactorial -COVID-19 pneumonia -Concerns for secondary bacterial pneumonia -Concerns for fluid overload, systolic CHF, pulmonary edema ? Plan ? Monitor respiratory status closely ? Continue BiPAP ? Monitor in ICU ? Decadron 6 mg IV push every 24 hours ? Start remdesivir ? Continue vancomycin ? Continue Zosyn ? Lasix 40 mg IV push once ? Cardiac echo -CT angiogram the chest # DuoNeb # Budesonide # Monitor respiratory status closely # Patient is DNR/DNI # Heparin drip for DVT prophylaxis Sepsis secondary to COVID-19, pneumonia, sepsis features met given lactic acidosis, acute respiratory failure, NSTEMI ? Serial EKGs, serial troponins, telemetry monitoring ? Continue aspirin, statin -heparin drip Lactic acidosis Atrial fibrillation History of CAD, history of CABG 10/13/2024 Continue treatment for COVID-pneumonia with remdesivir. Dexamethasone. Pending echocardiogram. Continue heparin drip for NSTEMI. Noted to have coarse tremors related to Parkinson's. Further orders to be dependent on results of echo 10/14/24: Continue treatment for COVID pneumonia. Day 3 remdisivir today, continue dexamethasone. Echo shows LV systolic function is moderate to severely reduced with EF of 30-35%. requesting prior studies from [place] to compare.For now continue heparin gtt, Appreciate cardiology recommendations. PT/OT assessment ordered to enable appropriate disposition planning. 10/15/24 day 4 remdisivir and steroids today. Patient clinically better. Overnight developed acute swelling over the left hand and wrist which appears to be a hematoma. She has pain with movement at this site. X ray negative for any fractures. No neurovascular deficits currently. Completed 48 hrs of a/c , off heparin drip now. Will wait for hematoma to be improving prior to placing her back on Eliquis. Will transition as many meds as possible to oral to avoid further pricks or need to replace Ivs given skin friability. Ongoing disposition planning , patient lives with elderly sister who is limited in taking care of her. Encourage participation with PT/OT. D/c iv vancomycin givem MRSA nares screen negative 10/16/24: Completed day 5 remdisivir today. on po Augmentin now. Dexamtheasone changed to po. left hand hematoma looks better today, there is still significant swelling over the left hand. pain is better, she is able to move her fingers though restricted by edema. additonal lasix 20mg iv today due to increased generalized swelling. Attestations 2 Medical Necessity Statement*: extra diuretic today, will obtain orthoi opinion regrading hand hematoma Coding Level of Care Code Acute Code for [facility] Fwd Diagnoses Acute hypoxic respiratory failure J96.01 Pulmonary edema J81.1 COVID-19 U07.1 Acidosis, lactic E87.20 Pneumonia J18.9 NSTEMI (non-ST elevated myocardial infarction) I21.4 Acute respiratory distress R06.03 CHF (congestive heart failure) I50.9 Sepsis A41.9
--- NOTE | 2024-10-16 09:34 | PC.NURSE ---
Confirmed with provider that she wants an additional 20mg of lasix this morning. Yes she wants the additional 20mg IVP.
[2024-10-16] MEDS: dexamethasone 4 mg Tablet 6 MG PO (09:58)
[2024-10-16] MEDS: FUROsemide 10 mg/mL SDV 2mL 20 MG IVP (09:58)
--- NOTE | 2024-10-16 11:11 | PM.CONSULT ---
Providers/Reason For Consult Consulting Physician/Specialty*: Byron Ellison DO/orthopedic surgery Reason for Consult*: Left wrist and hand hematoma Requesting Physician: Dr. Salazar Attending Physician: Morenita Salazar MD History of Present Illness History of Present Illness Jayde Obregon is a 88 year old female admitted to the hospital back on 10/11/2024. Patient was admitted for NSTEMI and COVID-pneumonia. During hospitalization patient patient was on a heparin drip she had subsequently developed a hematoma over the left hand and wrist. According to the patient the pain has been improved since yesterday as well as according to patient as well as hospitalist the swelling has improved since yesterday as well she is in less pain. Orthopedics was consulted for evaluation of the hematoma and treatment recommendations. Review of Systems General: Reports: 10 or more systems reviewed and unremarkable except in HPI and below Medications/Allergies Home Medications Medication Instructions Recorded Confirmed Last Taken Type Heart Food Caps 1 cap PO DAILY 10/12/24 10/12/24 10/11/24 History allopurinol 100 mg tablet 100 mg PO DAILY 10/12/24 10/12/24 10/11/24 History alprazolam 0.25 mg tablet See Rx Instructions .Route .COMPLEX 10/12/24 10/12/24 10/11/24 History amantadine HCl 100 mg capsule 100 mg PO BID 10/12/24 10/12/24 10/11/24 History apixaban 2.5 mg tablet (Eliquis) 2.5 mg PO BID 10/12/24 10/12/24 10/11/24 History apple cider vinegar 600 mg capsule 600 mg PO DAILY 10/12/24 10/12/24 10/11/24 History ascorbic acid (vitamin C) 1,000 mg 500 mg PO DAILY 10/12/24 10/12/24 10/11/24 History tablet (Vitamin C) aspirin 81 mg tablet,delayed 81 mg PO DAILY 10/12/24 10/12/24 10/11/24 History release (Shaila Low Dose Aspirin) cefuroxime axetil 500 mg tablet 500 mg PO BID 10/12/24 10/12/24 10/11/24 History cholecalciferol (vitamin D3) 50 50 mcg PO DAILY 10/12/24 10/12/24 10/11/24 History mcg (2,000 unit) tablet (Vitamin D3) furosemide 40 mg tablet 40 mg PO DAILY 10/12/24 10/12/24 10/11/24 History lisinopril 10 mg tablet 10 mg PO BID 10/12/24 10/12/24 10/11/24 History magnesium glycinate 100 mg (as 100 mg PO DAILY 10/12/24 10/12/24 10/11/24 History glycinate) tablet potassium chloride 20 mEq 20 meq PO DAILY 10/12/24 10/12/24 10/11/24 History tablet,extended release(part/cryst) pravastatin 40 mg tablet 40 mg PO DAILY 10/12/24 10/12/24 10/11/24 History primidone 50 mg tablet 150 mg PO BEDTIME 10/12/24 10/12/24 10/11/24 History sotalol 80 mg tablet 40 mg PO BID 10/12/24 10/12/24 10/11/24 History vitamins A,C,D-xqde-ynejzh 2,148 2 tab PO BID 10/12/24 10/12/24 10/11/24 History mcg-113 mg-45 mg-17.4 mg tablet (PreserVision AREDS) Allergies Allergy/AdvReac Type Severity Reaction Status Date / Time No Known Allergies Allergy Verified 10/11/24 21:52 Current Medications Generic Name Dose Route Start Last Admin Trade Name Jasonq PRN Reason Stop Dose Admin Acetaminophen 650 mg 10/12/24 03:20 10/14/24 21:06 Acetaminophen 325 Mg Tablet PO 650 mg Q6H PRN Administration Mild/Mod Pain Or Temp >/= 101 Hydrocodone Bitart/Acetaminophen 1 tab 10/15/24 14:41 10/15/24 17:51 Hydrocodone-Acetaminophen 5-325 Mg Tablet PO 1 tab Q6H PRN Administration MODERATE PAIN Albuterol/Ipratropium 3 ml 10/12/24 08:00 10/16/24 07:39 Ipratropium-Albuterol 3 Ml Neb INHALATION 3 ml QID.RESPIRATORY DEYSI Administration Allopurinol 100 mg 10/13/24 09:00 10/16/24 08:39 Allopurinol 100 Mg Tablet PO 100 mg DAILY DEYSI Administration Alprazolam 0.25 mg 10/13/24 16:49 10/14/24 21:06 Alprazolam 0.5 Mg Tablet PO 0.25 mg DAILY PRN Administration ANXIETY Amoxicillin/Clavulanate Potassium 1 tab 10/15/24 18:00 10/16/24 08:39 Amoxicillin-Clav 875-125 Mg Tablet PO 1 tab BID DEYSI Administration Protocol Aspirin 81 mg 10/12/24 09:00 10/16/24 08:39 Aspirin 81 Mg Ec Tablet PO 81 mg DAILY DEYSI Administration Atorvastatin Calcium 40 mg 10/12/24 21:00 10/15/24 20:43 Atorvastatin 40 Mg Tablet PO 40 mg BEDTIME DEYSI Administration Budesonide 0.5 mg 10/12/24 08:00 10/16/24 07:39 Budesonide 0.5 Mg/2 Ml Neb INHALATION 0.5 mg BID.RESPIRATORY DEYSI Administration Dexamethasone 6 mg 10/16/24 09:30 10/16/24 09:58 Dexamethasone 4 Mg Tablet PO 6 mg Q24H DEYSI Administration Furosemide 40 mg 10/13/24 09:00 10/16/24 08:39 Furosemide 40 Mg Tablet PO 40 mg DAILY DEYSI Administration Lisinopril 10 mg 10/12/24 18:05 10/16/24 08:39 Lisinopril 10 Mg Tablet PO 10 mg BID DEYSI Administration Morphine Sulfate 2 mg 10/15/24 10:00 10/15/24 23:09 Morphine 4 Mg/Ml Sdv 1 Ml IVP 2 mg Q4H PRN Administration SEVERE PAIN Ondansetron HCl 4 mg 10/12/24 03:20 10/16/24 09:19 Ondansetron 2 Mg/Ml Sdv 2 Ml IVP 4 mg Q8H PRN Administration vomiting, or N/V if npo Pantoprazole Sodium 40 mg 10/16/24 09:00 10/16/24 08:[address] 40 Mg Tablet PO 40 mg DAILY DEYSI Administration Primidone 150 mg 10/12/24 21:00 10/15/24 20:43 Primidone 50 Mg Tablet PO 150 mg BEDTIME DEYSI Administration Senna/Docusate Sodium 0.5 tab 10/12/24 11:53 10/16/24 08:38 Sennosides-Docusate Tablet PO 0.5 tab DAILY DEYSI Administration Sotalol HCl 40 mg 10/12/24 11:52 10/16/24 08:39 Sotalol 80 Mg Tablet PO 40 mg BID@0900,2100 DEYSI Administration PFSH Acute PFSH: Medical History (Updated 10/16/24 @ 12:08 by Byron Ellison DO) Atrial fibrillation History of hypertension Surgical History (Updated 10/12/24 @ 12:31 by Jailene Gee MD) S/P coronary artery stent placement s/p 4 stents since her CABG in 2002 Hx of CABG 4v cabg in 2002 Social History (Updated 10/12/24 @ 00:56 by Deangelo Marrufo MD) Smoking and tobacco/nicotine status: never used tobacco/nicotine Alcohol intake: never Substance/Drug Use: never Vitals/I&O/Wt Last Vital Signs Temp 97.8 F 10/16/24 07:17 Pulse 77 10/16/24 07:50 Resp 16 10/16/24 07:40 BP 151/68 10/16/24 07:17 Pulse Ox 97 10/16/24 07:50 O2 Del Method Nasal Cannula 10/16/24 07:50 O2 Flow Rate 1 10/16/24 07:50 FiO2 55 10/12/24 04:00 10/15/24 10/16/24 10/16/24 22:59 06:59 14:59 Intake Total 584.182 / 1253.015 400 / 1653.015 340 / 340 Output Total 950 / 950 760 / 1710 Balance -365.818 / 303.015 -360 / -56.985 340 / 340 Weight last 48 hrs Weight 130 lb 1.164 oz Weight 130 lb 1.164 oz Physical Exam Narrative: Orthopedic examination: Examination of the left upper extremity demonstrates patient has a palpable hematoma over the dorsal hand and wrist with significant ecchymosis. There is no evidence of tissue breakdown at this time. Patient and hospitalist both state swelling has improved since prior examination. At this point in time her compartments in her forearm and hand are soft and compressible she is able to tolerate passive range of motion with no pain out of proportion. She is able to wiggle her fingers as well as sensations intact light touch distally. Fingertips warm well-perfused wrist cap refill less than 2 seconds as well as distal pulses are palpable. Urinary Catheter Management: Shah: Cath Placed During This Visit: yes Reason for Continuing Indwelling Catheter: Accurate Measurement of Urinary Output in Critically Ill Patients Urinary Catheter Date of Insertion: 10/11/24 Urinary Catheter Time of Insertion: 23:16 Data 10/16/24 06:33 10/16/24 06:[address]: Radiologist's impression: Ordering Provider/Ordering MD: Morenita Salazar MD Date of Service: 10/15/24 Procedure(s): CT hand LT w con [id number] Accession Number(s): [id number] Report Number: [id number] PROCEDURE INFORMATION: Exam: CT Left Upper Extremity With Contrast, Hand Exam date and time: 10/15/2024 5:06 PM Age: 88 years old Clinical indication: Swelling; Hand; Left; Additional info: Worsening hematoma, worsening hematoma left hand, evaluate for active bleeding TECHNIQUE: Imaging protocol: Computed tomography of the left upper extremity with contrast. Exam focused on the hand. Radiation optimization: All CT scans at this facility use at least one of these dose optimization techniques: automated exposure control; mA and/or kV adjustment per patient size (includes targeted exams where dose is matched to clinical indication); or iterative reconstruction. Contrast material: OMNI 350; Contrast volume: 100 ml; Contrast route: INTRAVENOUS (IV); COMPARISON: CR ([facility], ) 10/14/2024 10:46 PM RADIATION DOSE METRICS: Total DLP (mGy-cm): 759.32 FINDINGS: Bones/joints: Normal. No acute fracture or dislocation. Soft tissues: Large hematoma along the dorsal aspect of the hand and wrist measuring up to 5.3 x 2.7 x 13.3 cm. Other findings: The study was not performed in the precontrast and arterial phases and active extravasation cannot be excluded. CT/CT hand LT w con [id number] IMPRESSION: 1. Large hematoma along the dorsal aspect of the hand and wrist measuring up to 5.3 x 2.7 x 13.3 cm. 2. The study was not performed in the precontrast and arterial phases and active extravasation cannot be excluded. Xray Ortho: Radiologist's impression: Ordering Provider/Ordering MD: Jailene Gee MD Date of Service: 10/14/24 Procedure(s): XR wrist LT min 3V* [id number] Accession Number(s): [id number] Report Number: [id number] PROCEDURE INFORMATION: Exam: XR Left Wrist Exam date and time: 10/14/2024 10:46 PM Age: 88 years old Clinical indication: Injury or trauma; Fall; Blunt trauma (contusions or hematomas); Wrist; Left; Additional info: Acute L. Wrist injury with hematoma TECHNIQUE: Imaging protocol: Radiologic exam of the left wrist. Views: 3 or more views. COMPARISON: No relevant prior studies available. FINDINGS: Bones/joints: Advanced degenerative changes of the 1st carpometacarpal joint. No definite acute fracture. No dislocation. Soft tissues: Diffuse soft tissue swelling along the dorsum of the hand. XR/XR wrist LT min 3V* [id number] IMPRESSION: No definite acute osseous findings. Soft tissue swelling throughout the dorsum of the hand. CT could be considered for further assessment if warranted. A&P Assessment and plan (1) Hematoma of hand: Plan No acute orthopedic surgical invention recommended at this time Continue with a conservative approach for left hand and wrist hematoma Compressive Krish wrap Recommend Velcro wrist brace as needed while patient does therapy Can weight-bear as tolerated to the left upper extremity Ice as needed as well as elevation for pain and swelling Pain control per primary PT/OT May weight-bear as tolerated to the left upper extremity okay to use wrist brace if patient tolerates it better Internal medicine on board as primary team Imaging reviewed Labs reviewed Patient stable for discharge from orthopedic standpoint does not require orthopedic follow-up outpatient and follow-up with primary care Patient at this point time stable from an orthopedic standpoint. Patient does have a hematoma on the dorsal aspect of the hand and wrist. Compartments are soft compressible sensations intact light touch distally. She is able to wiggle her fingers actively with purpose with no significant pain or discomfort does have some decreased range of motion at this secondary to swelling overall at this point time no tissue breakdown from hematoma and would recommend patient be treated conservatively with compressive Krish wrap or Tubigrip as well as plus or minus a wrist brace as she wants for getting up with therapy. Daughter present at bedside understands and impression and agrees with current plan. This point time understand the process of hematoma slow resumption over time encouraged her to have some therapy working on her hand and finger and wrist range of motion as well as. Patient may weight-bear as tolerated to left upper extremity. Patient planning on discharging to rehab facility later today stable from an orthopedic standpoint does not require orthopedic follow-up can follow-up with the primary care provider closer to rehab facility for convenience patient as well as daughter understand agree with current plan. Questions answered. Coding Level of Care Code Acute Code for Chg Fwd Diagnoses Hematoma of hand S60.229A Time Spent (min) 45
--- NOTE | 2024-10-16 11:58 | P.PN_ITS ---
Subjective 2 Subjective: Patient feeling well. No chest pain. Vitals/I&O/Wt Last Vital Signs Temp 98.0 F 10/16/24 11:13 Pulse 77 10/16/24 11:22 Resp 16 10/16/24 11:15 BP 152/66 10/16/24 11:13 Pulse Ox 93 10/16/24 11:22 O2 Del Method Room Air 10/16/24 11:22 O2 Flow Rate 1 10/16/24 11:15 FiO2 55 10/12/24 04:00 10/15/24 10/16/24 10/16/24 22:59 06:59 14:59 Intake Total 584.182 / 1253.015 400 / 1653.015 340 / 340 Output Total 950 / 950 760 / 1710 750 / 750 Balance -365.818 / 303.015 -360 / -56.985 -410 / -410 Weight last 48 hrs Weight 130 lb 1.164 oz Weight 130 lb 1.164 oz Physical Exam 2 Narrative: GENERAL: Patient is alert, awake and oriented x3. HEART: Irregularly irregular, grade 2/6 systolic murmur LUNGS: Diminished air entry CENTRAL NERVOUS SYSTEM: Grossly nonfocal. EXTREMITIES: Lower extremities with 1+ edema bilaterally. Urinary Catheter Management: Shah: Cath Placed During This Visit: yes Reason for Continuing Indwelling Catheter: Accurate Measurement of Urinary Output in Critically Ill Patients Urinary Catheter Date of Insertion: 10/11/24 Urinary Catheter Time of Insertion: 23:16 Data 10/16/24 06:33 10/16/24 06:33 A&P Assessment and plan (1) Troponin level elevated: (2) CHF (congestive heart failure): (3) COVID-19: (4) Acute hypoxic respiratory failure: (5) Pulmonary edema: (6) Atrial fibrillation: Plan Patient is stable from cardiac standpoint. Can be followed up as outpatient. Secondary to hematoma, will recommend holding anticoagulation for now. In 1 to 2 weeks can be reassessed. Thank you for involving us with care of this patient. We will continue to follow. Please call with questions. Attestations 2 Medical Necessity Statement*: Care expected to cross 2 midnights. Coding Level of Care Code Acute Code for Chg Fwd Diagnoses Troponin level elevated R79.89 CHF (congestive heart failure) I50.9 COVID-19 U07.1 Acute hypoxic respiratory failure J96.01 Pulmonary edema J81.1 Atrial fibrillation I48.91
--- NOTE | 2024-10-16 14:59 | PC.NURSE ---
Report is called to SALUD Mccurdy at [facility] in [place], [place]. [phone]. Family is transporting patient to snf, discharge paperwork is sent with family, Varsha and , to give to snf.
--- NOTE | 2024-10-16 15:16 | P.DS_ITS ---
Discharge Providers Date of Admission: 10/12/24 00:12 Date of Discharge: October 16, 2024 Attending Provider at Admission: Deangelo Marrufo MD Attending Provider at Discharge: Morenita Salazar MD Diagnoses at Discharge Discharge Diagnosis (1) Hematoma of hand: Status: Acute (2) COVID-19: Status: Acute (3) NSTEMI (non-ST elevated myocardial infarction): Status: Acute (4) CHF (congestive heart failure): Status: Acute (5) Acute hypoxic respiratory failure: Status: Acute Reason for Visit Reason for Visit: SOB Hospital Course Hospital Course Jayde Obregon is a 88 year old female CAD, history of CABG x 4, history of atrial fibrillation, hypertension hyperlipidemia who was brought via air ambulance to [facility] on 10/12/24 due to shortness of breath. She was placed on BiPA on arrival. She was in respiratory distress with nasal flaring, intercostal retractions suprasternal retractions, tachypnea, tachycardia. She was found to be COVID-positive, had b/L infiltrates combination of pneumonitis and pulmonary edema. She was also diagnosed with an NSTEMI with elevated troponins. Her echocardiogram showed ejection fraction of 30%, dropped from 45% previously. She was treated conservatively in accordance with her wishes with anticoagulation with a heparin drip aspirin and statins. For her COVID-19 pneumonia she received treatment with 5 days of remdesivir, IV steroids and antibiotics. Her oxygen requirements have been able to be weaned down during the course of this admission. For CHF she received diuresis with Lasix. Overall with the above treatment patient is feeling symptomatically better. Hospital course was complicated by development of a left hand hematoma on October 14, 2024. Due to this anticoagulation with Eliquis is kept on hold for 1 week after discharge. Request intermediate physician to reassess hematoma at 1 week and resume Eliquis if hematoma is significantly improved. Hand was evaluated by orthopedics, no signs of compartment syndrome were noted. Instructed to maintain wrist in a Velcro splint while working with physical therapy. Krish bandage was applied today. Patient's daughter expresses several concerns about patient being on amantadine since January of this year. She has been encouraged to discuss these concerns with her primary care physician. As of now patient does not wish to take amantadine going forward. She is being discharged with recommendations to continue oral steroids, oral antibiotics and oral diuretics in addition to aspirin and statins. Physical Exam Narrative: General: No acute distress, AO x3 HEENT: PERRLA, pupils bilaterally equal and reactive, pallors not present Chest: Normal vesicular breath sounds, no added sounds, equal good air entry bilaterally CVS: S1-S2 regular, no murmurs, no tachycardia, no gallops, no rubs Abdomen: Soft, nontender, no organomegaly, bowel sounds present Neuro: No focal deficits, no facial deformity, AO x3, power 5/5 in all limbs Extremities: Large hematoma over the left wrist, appears better compared to yes terday's exam. Urinary Catheter Management: Shah: Cath Placed During This Visit: yes Reason for Continuing Indwelling Catheter: Accurate Measurement of Urinary Output in Critically Ill Patients Urinary Catheter Date of Insertion: 10/11/24 Urinary Catheter Time of Insertion: 23:16 Discharge Data Studies Completed and Pending Completed Studies During Hospitalization Category Date Time Status CT angio chest PE protcl [id number] Stat Cat Scan 10/12/24 00:[address] hand LT w con [id number] Routine Cat Scan 10/15/24 15:45 Completed XR chest 1V portable [id number] Stat Exams 10/11/24 21:51 Completed XR wrist LT min 3V* [id number] Stat Exams 10/14/24 22:37 Completed CV. echo complete* [id number] Stat Ultrasound 10/12/24 00:45 Completed Pending at discharge Category Date Time Status Blood Culture Stat Lab 10/11/24 23:10 Results Radiology Impressions Chest X-Ray 10/11/24 21:51 IMPRESSION: Mild left mid lung field opacities which could represent mild focal pneumonia. Chest CTA 10/12/24 00:45 IMPRESSION: 1. Cardiomegaly. 2. Aneurysmal dilatation involving the ascending aorta which measures 4.7 cm in maximal dimension. 3. Small bilateral pleural effusions. 4. Bilateral opacities likely inflammatory in origin. Recommend short-term follow-up to document complete resolution with appropriate therapy. 5. Bibasilar atelectasis with bronchial wall thickening. 6. Multiple small as well as slightly enlarged mediastinal and hilar lymph nodes most likely reactive. Again, follow-up recommended to document for interval change. Wrist X-Ray 10/14/24 22:37 IMPRESSION: No definite acute osseous findings. Soft tissue swelling throughout the dorsum of the hand. CT could be considered for further assessment if warranted. Hand CT 10/15/24 15:45 IMPRESSION: 1. Large hematoma along the dorsal aspect of the hand and wrist measuring up to 5.3 x 2.7 x 13.3 cm. 2. The study was not performed in the precontrast and arterial phases and active extravasation cannot be excluded. Laboratory Results WBC 7.97 10^3/uL (3.29-11.43) 10/16/24 06:33 RBC 3.90 10^6/uL (3.85-5.65) 10/16/24 06:33 Hgb 12.20 g/dL (11.27-16.99) 10/16/24 06:33 Hct 37.3 % (36-47) 10/16/24 06:33 MCV 95.6 fl (85-98) 10/16/24 06:33 MCH 31.3 pg (27-33) 10/16/24 06:33 MCHC 32.7 g/dL (30-55) 10/16/24 06:33 RDW 14.1 % (12.1-15.1) 10/16/24 06:33 Plt Count 239 10^3/cmm (157-399) 10/16/24 06:33 MPV 10.1 fL (7.4-10.4) 10/16/24 06:33 Neut % (Auto) 61.7 % 10/16/24 06:33 Lymph % (Auto) 23.1 % 10/16/24 06:33 [place] % (Auto) 10.3 % 10/16/24 06:33 Eos % (Auto) 3.6 % 10/16/24 06:33 Baso % (Auto) 0.4 % 10/16/24 06:33 Neut # (Auto) 4.92 10^3/uL (1.8-7.7) 10/16/24 06:33 Lymph # (Auto) 1.8 10^3/uL (0.8-4.8) 10/16/24 06:33 [place] # (Auto) 0.8 10^3/uL (0.2-0.9) 10/16/24 06:33 Eos # (Auto) 0.3 10^3/uL (0.0-0.8) 10/16/24 06:33 Baso # (Auto) 0.0 10^3/uL (0.0-0.1) 10/16/24 06:33 Nucleated RBC % (auto) 0 % 10/16/24 06:33 Nucleated RBCs # 0.0 /100WBC 10/16/24 06:33 APTT 53.0 SECONDS (23.9-36.7) H 10/15/24 05:54 Specimen Type Arterial 10/11/24 21:57 Sample Site Radial, left 10/11/24 21:57 ABG pH 7.32 (7.35-7.45) L 10/11/24 21:57 ABG pCO2 39.7 mmHg (35-45) 10/11/24 21:57 ABG pO2 107.0 mmHg (80.0-100.0) H 10/11/24 21:57 ABG PO2/FiO2 Ratio 194 10/11/24 21:57 ABG HCO3 20.4 mmol/L (22-26) L 10/11/24 21:57 ABG Base Excess -5.4 mmol/L (-2.0-2.0) L 10/11/24 21:57 Toi Test Pos 10/11/24 21:57 Hematocrit 42.0 % (37-47) 10/11/24 21:57 Hgb O2 Saturation 96.4 % (95-100) 10/11/24 21:57 Carboxyhemoglobin 1.0 %THgb (0.4-20.1) 10/11/24 21:57 Methemoglobin 0.8 % (0.4-1.5) 10/11/24 21:57 Total Hemoglobin 13.7 g/dL (12-16) 10/11/24 21:57 O2 Delivery Device Bipap 10/11/24 21:57 FiO2 55.0 % 10/11/24 21:57 Dough Catcher ID [email or web address] 10/11/24 21:57 Sodium 134 mmol/L (136-145) L 10/16/24 06:33 Potassium 4.1 mmol/L (3.5-5.1) 10/16/24 06:33 Chloride 98 mmol/L (98-107) 10/16/24 06:33 Carbon Dioxide 27 mmol/L (22-29) 10/16/24 06:33 Anion Gap 13.1 (5-19) 10/16/24 06:33 BUN 23 mg/dL (8-23) 10/16/24 06:33 Creatinine 0.8 mg/dL (0.5-0.9) 10/16/24 06:33 GFR Calculation Not Reportable 10/16/24 06:33 Glucose 120 mg/dL (65-115) H 10/16/24 06:33 Estimat Average Glucose 117 10/10/24 22:27 Hemoglobin A1c 5.7 % (4.0-6.0) 10/10/24 22:27 Calculated Osmolality 283 mOsm/kg (285-295) L 10/16/24 06:33 Lactic Acid 4.1 mmol/L (0.5-2.2) H* 10/11/24 22:27 Lactic Acid (Sepsis) 1.6 mmol/L (0.5-2.2) 10/12/24 02:33 Calcium 8.7 mg/dL (8.5-10.5) 10/16/24 06:33 Phosphorus 2.7 mg/dL (2.5-4.5) 10/13/24 01:10 Magnesium 1.9 mg/dL (1.7-2.3) 10/13/24 01:10 Total Bilirubin 0.3 mg/dL (0.15-1.2) 10/16/24 06:33 AST 115 U/L (0-32) H 10/16/24 06:33 ALT 193 U/L (0-33) H 10/16/24 06:33 Alkaline Phosphatase 110 U/L (35-105) H 10/16/24 06:33 Creatine Kinase 41 U/L (26-192) 10/13/24 01:10 Troponin T Baseline 99 ng/L (0-10) H 10/11/24 22:27 Troponin T 120 Minute 185.7 ng/L (0-10) H 10/12/24 00:15 Delta Troponin T 86.7 ABS# (0-10) H* 10/12/24 00:15 Troponin T Hi Sens 6Hr 224.5 ng/L (0-10) H 10/12/24 05:57 Troponin T Hi Sens 6Hr Delta 125.5 ng/L (0-12) H* 10/12/24 05:57 NT-Pro-B Natriuret Pep 28153 pg/mL (0-450) H 10/11/24 22: NT-Pro-B Natriuret Pep 25802 pg/mL (0-450) H 10/11/24 22: Total Protein 5.9 g/dL (6.6-8.7) L 10/16/24 06:33 Albumin 3.1 g/dL (3.5-5.2) L 10/16/24 06:33 Globulin 2.8 g/dL (1.3-4.6) 10/16/24 06:33 Triglycerides 48 mg/dL (0-150) 10/11/24 22: Cholesterol 72 mg/dL (0-200) 10/11/24 22: LDL Cholesterol, Calc 20 mg/dL (50-129) L 10/11/24: HDL Cholesterol 42 mg/dL (60-100) L 10/11/24: LDL/HDL Ratio 0.48 RATIO (0.00-3.22) 10/11/24: Cholesterol/HDL Ratio 1.71 mg/dL (0.0-4.40) 10/11/24: Procalcitonin 0.09 ng/mL (0-0.5) 10/12/24 00:15 TSH 1.37 uIU/mL (0.27-4.20) 10/11/24: Urine Color Yellow (Yellow) 10/11/24: Urine Appearance Clear (CLEAR) 10/11/24: Urine pH 5.0 (5-7) 10/11/24: Ur Specific [place] 1.014 (1.005-1.030) 10/11/24: Urine Protein 1+ (Negative) A 10/11/24: Urine Glucose (UA) Negative (Normal) 10/11/24: Urine Ketones Negative (Negative) 10/11/24: Urine Blood Negative (Negative) 10/11/24 Urine Nitrate Negative (Negative) 10/11/24: Urine Bilirubin Negative (Negative) 10/11/24: Urine Urobilinogen 0.2 mg/dL (Negative) 10/11/24: Ur Leukocyte Esterase Negative (Negative) 10/11/24: Urine RBC 0-2 /hpf (0-2) 10/11/24 22:27 Urine WBC 0-5 /hpf (0-5) 10/11/24 22:27 Ur Squamous Epith Cells 0-5 /hpf (0-5) 10/11/24 22:27 Amorphous Sediment Not Reportable 10/11/24 22:27 Urine Bacteria None seen /hpf (NONE) 10/11/24 22: Hyaline Casts 7.01 /lpf 10/11/24 22:27 Nasal MRSA (PCR) Not detected (Not Detecte) 10/13/24 19:30 Vancomycin Trough 15.3 ug/mL (10-15) H 10/15/24 11:05 Coronavirus (PCR) Positive (Negative) A 10/11/24 22: Influenza A (PCR) Negative (Negative) 10/11/24 22: Influenza Type B (PCR) Negative (Negative) 10/11/24 22: RSV (PCR) Negative (Negative) 10/11/24 22: Vitals Last Vital Signs Temp 98.0 F 10/16/24 11:13 Pulse 68 10/16/24 15:03 Resp 14 10/16/24 15:03 BP 153/66 10/16/24 15:03 Pulse Ox 92 10/16/24 15:03 O2 Del Method Room Air 10/16/24 11:22 O2 Flow Rate 1 10/16/24 11:15 FiO2 55 10/12/24 04:00 Discharge Plan Discharge Patient Disposition: Xfer SNF Condition: Stable Prescriptions: New hydrocodone-acetaminophen 5-325 mg Tablet 1 tab PO Q12H PRN (Reason: Moderate Pain) 5 Days Qty: 10 0RF aspirin 81 mg Tablet,Delayed Release (Dr/Ec) 81 mg PO DAILY 30 Days Qty: 30 0RF pantoprazole 40 mg Tablet,Delayed Release (Dr/Ec) 40 mg PO DAILY 30 Days Qty: 30 0RF dexamethasone 4 mg Tablet 6 mg PO Q24H 5 Days Qty: 8 0RF amoxicillin-pot clavulanate 875-125 mg Tablet 1 tab PO BID 5 Days Qty: 10 0RF Continued furosemide 40 mg tablet 40 mg PO DAILY primidone 50 mg tablet 150 mg PO BEDTIME ascorbic acid (vitamin C) [Vitamin C] 1,000 mg Tablet 500 mg PO DAILY pravastatin 40 mg tablet 40 mg PO DAILY sotalol 80 mg tablet 40 mg PO BID allopurinol 100 mg tablet 100 mg PO DAILY aspirin [Shaila Low Dose Aspirin] 81 mg Tablet,Delayed Release (Dr/Ec) 81 mg PO DAILY amantadine HCl 100 mg capsule 100 mg PO BID potassium chloride 20 mEq tablet,ER particles/crystals 20 meq PO DAILY apple cider vinegar 600 mg Capsule 600 mg PO DAILY lisinopril 10 mg tablet 10 mg PO BID cholecalciferol (vitamin D3) [Vitamin D3] 50 mcg (2,000 unit) Tablet 50 mcg PO DAILY magnesium glycinate 100 mg Tablet 100 mg PO DAILY PreserVision AREDS 2,148 mcg-113 mg-45 mg-17.4mg Tablet 2 tab PO BID Rx Instructions: administer with AM and PM meals Heart Food Caps 1 cap PO DAILY alprazolam 0.25 mg tablet See Rx Instructions .ROUTE .COMPLEX Rx Instructions: TAKE ONE-HALF TO ONE TABLET BY MOUTH THREE TIMES DAILY NEEDED FOR ANXIETY Held Eliquis 2.5 mg Tablet 2.5 mg PO BID Hold Instructions: Resume on 10/23/24. Discontinued cefuroxime axetil 500 mg tablet 500 mg PO BID Discharge Orders: Discharge Order (Routine); Ordered 10/16/24 Ordered By: Morenita Salazar Referrals: [facility] [place] [Other] Byron Ellison DO [Physician] - (May follow-up as needed) Discharge Diet: Advance as tolerated Discharge Activity: Increase activity as tolerated, Limit activity as instructed and As per PT/OT instructions Activity Restrictions/Additional Instructions: Orthopedic discharge instructions: Patient may weight-bear as tolerated left upper extremity Recommend Velcro removable wrist brace when patient is up and ambulating if this helps with therapy Encourage therapy for hand and wrist and finger range of motion to prevent stiffness as well as to work on swelling Compressive Krish wrap/Tubigrip compressive sleeve for swelling of the hand to help resorb hematoma Ice and elevate as needed for pain and swelling Pain medication per primary team Recommend outpatient follow-up with primary care health provider Follow-up with orthopedics as needed : number in chart for Dr. Ellison orthopedic office if primary care wishes for us to reevaluate, overwise followup with PCP for convenience for patient this can be managed in an just observe with the primary care team Discharge Attestations Time Spent in Discharge Care*: greater than 30 min Quality Metrics Clinical Quality Measures [ Acute Myocardial Infaction { Clinical Trial Participant: No; Contraindication to aspirin: None; Aspirin prescribed; Contraindication to statin: None; Statin prescribed; Contraindication to PCI: Intervention not indicated;}] Coding Level of Care Code Acute Code for Chg Fwd Diagnoses Hematoma of hand S60.229A COVID-19 U07.1 NSTEMI (non-ST elevated myocardial infarction) I21.4 CHF (congestive heart failure) I50.9 Acute hypoxic respiratory failure J96.01
--- NOTE | 2024-10-16 15:33 | PC.NURSE ---
Discharge was delayed due to [facility] not taking report. Patient left with patient at [id number].
== END 2024-10-16 15:33 | disposition skilled nursing facility (03) | DRG 177 ==
LOC: ER 10-12 01:39 → ICU 10-12 01:40 → CSU 10-14 20:04
PROVIDERS: Internal Medicine; Admitting Provider Family Medicine; Emergency Provider Emergency Medicine; Visit Provider Student in an Organized Health Care Education/Training Program
DX: U07.1 COVID-19 (principal); I21.A1 Myocardial infarction type 2; J12.82 Pneumonia due to coronavirus disease 2019; I50.23 Acute on chronic systolic (congestive) heart failure; J96.01 Acute respiratory failure with hypoxia; J15.9 Unspecified bacterial pneumonia; E87.20 Acidosis, unspecified; S60.212A Contusion of left wrist, initial encounter; X58.XXXA Exposure to other specified factors, initial encounter; I11.0 Hypertensive heart disease with heart failure; I25.10 Atherosclerotic heart disease of native coronary artery without angina pectoris; Z95.1 Presence of aortocoronary bypass graft; Z95.5 Presence of coronary angioplasty implant and graft; I48.91 Unspecified atrial fibrillation; E78.5 Hyperlipidemia, unspecified; Z79.82 Long term (current) use of aspirin; F41.9 Anxiety disorder, unspecified; Z66 Do not resuscitate; Z79.01 Long term (current) use of anticoagulants; M25.561 Pain in right knee; R94.31 Abnormal electrocardiogram [ECG] [EKG]; I71.60 Thoracoabdominal aortic aneurysm, without rupture, unspecified; Y92.230 Patient room in hospital as the place of occurrence of the external cause
CPT/HCPCS: 36415; 36600; 51702; 71045; 71275; 73110; 73201; 80053; 80061; 80202; 81001; 82550; 82805; 83036; 83605; 83735; 83880; 84100; 84145; 84443; 84484; 85025; 85730; 87040; 87637; 93005; 93306; 94640; 94660; 96365; 96367; 96376; 97110; 97116; 97161; 99285; 99291; 99292; J0248; J1100; J1171; J1644; J1940; J2270; J2405; J2470; J2543; J3370; J7050; J7626; J8540; L3908